=== PATIENT | female | born 1945 | race American Indian/Alaskan Native ===

== ENCOUNTER 2019-10-28 16:14 | Outpatient (CLI) | payer MEDICARE, OTHER | END 2019-10-28 16:15 | disposition home or self-care (01) | LOC: LABHHL 16:14 | PROVIDERS: ATTEND Surgery | DX: C50.912 Malignant neoplasm of unspecified site of left female breast (principal); C50.112 Malignant neoplasm of central portion of left female breast; C50.412 Malignant neoplasm of upper-outer quadrant of left female breast; C50.812 Malignant neoplasm of overlapping sites of left female breast; R59.9 Enlarged lymph nodes, unspecified | CPT/HCPCS: 88305; 88341; 88342 ==

== ENCOUNTER 2019-11-02 14:02 | Outpatient (CLI) | payer MEDICARE ==
--- NOTE | 2019-11-02 16:10 | Vascular Lab Report ---
DUPLEX DOPPLER LOWER EXTREMITY VEINS, BILATERAL INDICATION: R22.43 Localized swelling, mass and lump, lower limb, bilatera/R/. TECHNIQUE: Duplex doppler imaging was performed through the veins of both lower extremities using venous kelsi sherley and other maneuvers. COMPARISON: No relevant prior imaging study available. FINDINGS: Right Common femoral vein: Negative. Right Superficial femoral vein: Negative. Right Popliteal vein: Positive, occlusive. Right Calf veins: Positive, occlusive in the peroneal and posterior tibial veins. Left Common femoral vein: Negative. Left Superficial femoral vein: Positive, occlusive beginning in the mid and extending into the distal segments. Left Popliteal vein: Positive, occlusive. Left Calf veins: Positive extending into the peroneal vein. Additional findings: None.. IMPRESSION: 1. Positive for DVT bilaterally as above. Findings were called to Dr. Isabel by the furnace process plant operator at 1508 hours. Signer Name: Waldemar Hopson MD Signed: 11/02/2019 4:06 PM Workstation Name: [id number]
== END 2019-11-02 14:03 | disposition home or self-care (01) ==
LOC: VAS 14:02
PROVIDERS: ATTEND Surgery
DX: I82.493 Acute embolism and thrombosis of other specified deep vein of lower extremity, bilateral (principal)
CPT/HCPCS: 93970

== ENCOUNTER 2019-11-03 13:24 | Emergency (ER) | payer MEDICARE ==
[2019-11-03 13:33] VITALS: BP 209/91
[2019-11-03] MEDS ORDERED: SODIUM CHLORIDE 0.9% 500 ML 500 ML IV ONE (14:01)
--- NOTE | 2019-11-03 14:01 | Emergency Department Report ---
Chief Complaint: Extremity Injury, Lower Stated Complaint: BLOOD CLOTS/LEG PAIN - HPI History of Present Illness: breast ca follows with dr reinoso has b/l leg pain no cp + sob w exertion [place] [place] labs cta chest ekg main side Vital Signs 11/03/19 13:32 Temperature 98.9 F Pulse Rate 109 H Respiratory 20 Rate Blood Pressure 209/91 [Left] O2 Sat by Pulse 98 Oximetry Print Report Referring Physician: ALYSA ISABEL Patient Name: NAN JENKINS Date of : 1945 Sex: Female Report Date: 2019-11-02 Report Status: Finalized Findings [facility] [address] [place] [address] Vascular Lab Report Signed Patient: NAN JENKINS MR#: [id number] : 1945 Acct:[id number] Age/Sex: 74 / F ADM Date: 11/02/19 Loc: VAS Attending Dr: ALYSA ISABEL MD Ordering Physician: ALYSA ISABEL MD Date of Service: 11/02/19 Procedure(s): VL venous duplex LE BILAT Accession Number(s): [id number] cc: ALYSA ISABEL MD DUPLEX DOPPLER LOWER EXTREMITY VEINS, BILATERAL INDICATION: R22.43 Localized swelling, mass and lump, lower limb, bilatera/R/. TECHNIQUE: Duplex doppler imaging was performed through the veins of both lower extremities using venous compression and other maneuvers. COMPARISON: No relevant prior imaging study available. FINDINGS: Right Common femoral vein: Negative. Right Superficial femoral vein: Negative. Right Popliteal vein: Positive, occlusive. Right Calf veins: Positive, occlusive in the peroneal and posterior tibial veins. Left Common femoral vein: Negative. Left Superficial femoral vein: Positive, occlusive beginning in the mid and extending into the distal segments. Left Popliteal vein: Positive, occlusive. Left Calf veins: Positive extending into the peroneal vein. Additional findings: None.. IMPRESSION: 1. Positive for DVT bilaterally as above. Findings were called to Dr. Isabel by the [employer] at 1508 hours. Signer Name: Waldemar Hopson MD Signed: 11/02/2019 4:06 PM Workstation Name: [id number] Transcribed By: ELENO Dictated By: Waldemar Hopson MD Electronically Authenticated By: Waldemar Hopson MD Signed Date/Time: 11/02/19 160 DD/ 1602 TD/TT: - Exam Vital Signs: Vital Signs 11/03/19 13:32 Temperature 98.9 F Pulse Rate 109 H Respiratory 20 Rate Blood Pressure 209/91 [Left] O2 Sat by Pulse 98 Oximetry MSE screening note: Focused history and physical exam performed. Due to findings the following was ordered: ED Disposition for MSE Condition: Stable
[2019-11-03 15:05] LABS: Hematocrit 27.6 % (30.3-42.9); Hemoglobin 8.8 gm/dl (10.1-14.3); Mean Corpuscular HGB Conc 32 % (30-34); Mean Corpuscular Volume 95 fl (79-97); Platelet Count 380 K/mm3 (140-440); Red Blood Count 2.89 M/mm3 (3.65-5.03); Red Cell Distribution Width 14.9 % (13.2-15.2)
[2019-11-03 15:19] LABS: INR 1.09 (0.87-1.13)
[2019-11-03 15:23] LABS: Alanine Aminotransferase 38 units/L (7-56); Albumin 3.5 g/dL (3.9-5); BUN/Creatinine Ratio 16; Blood Urea Nitrogen 16 mg/dL (7-17); Calcium 10.2 mg/dL (8.4-10.2); Hemolysis Index 0
== END 2019-11-03 17:45 | disposition left against medical advice (07) ==
LOC: ED 13:24
DX: M79.662 Pain in left lower leg (principal); M79.661 Pain in right lower leg; Z53.21 Procedure and treatment not carried out due to patient leaving prior to being seen by health care provider
CPT/HCPCS: 36415; 80053; 82550; 83735; 85027; 85610; 93005; 93010

== ENCOUNTER 2019-11-11 09:39 | Outpatient (CLI) | payer MEDICARE | END 2019-11-11 09:40 | disposition home or self-care (01) | LOC: LABHHL 09:39 | PROVIDERS: ATTEND Surgery | DX: N60.02 Solitary cyst of left breast (principal) | CPT/HCPCS: 88305 ==

== ENCOUNTER 2019-11-24 05:48 | Day surgery (SDC) | payer MEDICARE ==
--- NOTE | 2019-11-23 13:49 | Short Stay Summary ---
Short Stay Documentation Date of service: 11/24/19 - History H&P: obtained from office - Allergies and Medications Current Medications: Allergies No Known Allergies Allergy (Verified 11/23/19 13:46) - Physical exam General appearance: no acute distress Integumentary: no rash Lungs: Normal air movement Neurological: Normal speech - Brief post op/procedure progress note Date of procedure: 11/24/19 (dictation:[id number]) Pre-op diagnosis: left breast cancer Post-op diagnosis: same Procedure: Us guided port placement IVF 700cc EBL min Anesthesia: MAC Findings: normal anatomy. purulent, ulcerated breast cancer on left. Surgeon: VANDANA BACON Estimated blood loss: minimal Pathology: none Condition: stable - Hospital course Hospital course: uneventful - Disposition Condition at discharge: Stable Disposition: DC-01 TO HOME OR SELFCARE Short Stay Discharge Plan Activity: advance as tolerated Diet: regular Wound: remove dressing (on Thursday), per your surgeon's advice Special Instructions: no heavy lifting Additional Instructions: Post Operative Instructions Activity: no heavy lifting for next 1 week. May shower on Thursday. May remove overlying dressing on Thursday. Pat dry the wound or wounds after showering. Keep incision sites clean and dry After surgery, start with a light diet. Consider starting with liquids. If you do well, you can advance to a regular diet as you feel comfortable. Apply an ice pack to the wound or wounds for 10-20 minutes at a time. Do this at least 4-5 times a day. You can do it more if he would like. Take alternating doses of ibuprofen and Tylenol as needed for pain. Take 600 mg of ibuprofen every 6 hours as needed. Take 500 mg of Tylenol every 6 hours as needed. You should alternate these 2 medicines. Make sure you take the ibuprofen with food. It is very important that you use the prescription narcotic pain medicine (hydrocodone) only for very severe pain. Do not take the narcotic medicine before you try using all the medications listed above. Unable to give a new prescription today as we just gave one 2 days ago. We will call you in a couple of days to see how youre doing. If you have any questions or concerns, always feel free to call the clinic ([phone]) at any time. CALL FOR F/U APPT. FOLLOW SURGEON INSTRUCTIONS. Follow up with: PRIMARY MD DONNELL [Primary Care Provider] - 7 Days Forms: Outpatient Surgery [facility]
[~2019-11-24 05:48] MED LIST: LACTATED RINGERS 1,000 ML IV SCH
[2019-11-24] MEDS ORDERED: CELECOXIB 200 MG CAP PO NR (06:00)
[2019-11-24] MEDS ORDERED: GABAPENTIN 300 MG CAP PO NR (06:00)
[2019-11-24] MEDS ORDERED: ceFAZolin/Water 2 GM/20 ML 2 GM/20 ML SYRINGE IV NR (06:00)
[2019-11-24] MEDS ORDERED: ACETAMINOPHEN 500 MG TAB PO SCH (06:00)
[2019-11-24] MEDS ORDERED: LIDOCAINE (1%) 10 MG/1 ML VIAL 20 ML MDV ONE (06:27)
[2019-11-24] MEDS ORDERED: BUPIVACAINE-EPINEPHRINE/PF 0.5%-1:200,000 (30 ML) VIAL INFILTRATI ONE ×2 (06:27→07:23)
[2019-11-24] MEDS ORDERED: SODIUM CHLORIDE P/F VIAL 10 ML 10 ML ONE (06:27)
[2019-11-24] MEDS ORDERED: HEPARIN 10,000 UNITS/10 ML VIAL ONE (06:27)
[2019-11-24] MEDS ORDERED: GELATIN SPONGE SIZE 100 TP ONE (06:28)
[2019-11-24] MEDS ORDERED: SODIUM CHLORIDE 0.9% 250ML 250 ML ONE (06:28)
[2019-11-24 07:14] LABS: Basophils % (Auto) 0.3 % (0.0-1.8); Hematocrit 24.9 % (30.3-42.9); Hemoglobin 7.8 gm/dl (10.1-14.3); Lymphocytes # (Auto) 1.5 K/mm3 (1.2-5.4); Lymphocytes % (Auto) 9.8 % (13.4-35.0); Mean Corpuscular HGB Conc 31 % (30-34); Mean Corpuscular Volume 97 fl (79-97); Monocytes # (Auto) 1.4 K/mm3 (0.0-0.8); Monocytes % (Auto) 9.4 % (0.0-7.3); Platelet Count 424 K/mm3 (140-440); Red Blood Count 2.56 M/mm3 (3.65-5.03); Red Cell Distribution Width 18.2 % (13.2-15.2)
[2019-11-24 07:19] LABS: BUN/Creatinine Ratio 17; Blood Urea Nitrogen 17 mg/dL (7-17); Calcium 11.5 mg/dL (8.4-10.2); Hemolysis Index 1
[2019-11-24] MEDS ORDERED: fentaNYL 100 MCG/2 ML INJ IV PRN (07:20)
--- NOTE | 2019-11-24 07:20 | Anesthesia Consultation ---
Anesthesia Consult and Med Hx Date of service: 11/24/19 - Airway Anesthetic Teeth Evaluation: Dentures (upper) ROM Head & Neck: Adequate (mild rstricted extesion) Mental/Hyoid Distance: Adequate Mallampati Class: Class II Intubation Access Assessment: Possibly Difficult - Pulmonary Exam CTA: Yes - Cardiac Exam Cardiac Exam: RRR - Pre-Operative Health Status ASA Pre-Surgery Classification: ASA3 Proposed Anesthetic Plan: General - Pulmonary Hx Asthma: Yes (remote hx; no inhaler use in >10yrs) Hx Respiratory Symptoms: No - Cardiovascular System Hx Hypertension: Yes (recent diagnosis) Hx Heart Attack/AMI: No Hx Percutaneous Transluminal Coronary Angioplasty (PTCA): No Hx Cardia Arrhythmia: No - Central Nervous System CVA: No - Gastrointestinal Hx Gastroesophageal Reflux Disease: No - Endocrine Hx Renal Disease: No Hx Liver Disease: No Hx Insulin Dependent Diabetes: No Hx Non-Insulin Dependent Diabetes: No Hx Thyroid Disease: No - Hematic Hx Anemia: Yes - Other Systems Hx Cancer: Yes (breast Ca; not yet on chemo) Hx Obesity: No - Additional Comments Anesthesia Medical History Comments: No hx anesthetic complications. Recent diagnosis b/l LE DVT. Previously on xarelto but taken off for bleeding. Now with IVC filter.
--- NOTE | 2019-11-24 07:20 | Anesthesia Day of Surgery ---
Anesthesia Day of Surgery - Day of Surgery Patient Examined: Yes Patient H&P Reviewed: Yes Patient is NPO: Yes
[2019-11-24] MEDS ORDERED: LIDOCAINE (1%) 10 MG/1 ML VIAL 20 ML MDV INFILTRATI ONE (07:23)
[2019-11-24] MEDS ORDERED: HEPARIN 10,000 UNITS/10 ML VIAL IV ONE (07:24)
[2019-11-24] MEDS ORDERED: SODIUM CHLORIDE 0.9% 250 ML IVPB IV ONE (07:25)
[2019-11-24] MEDS ORDERED: LIDOCAINE MPF (2%) 20 MG/1 ML VIAL 5 ML ONE (07:43)
[2019-11-24] MEDS ORDERED: propofoL 200 MG/20 ML VIAL IV ONE ×3 (07:44→08:19)
[2019-11-24] MEDS ORDERED: fentaNYL 100 MCG/2 ML INJ ONE (07:44)
[2019-11-24] MEDS ORDERED: MIDAZOLAM 2 MG/2 ML INJ ONE (08:00)
[2019-11-24] MEDS ORDERED: PHENYLEPHRINE/NS 1,000 MCG/10 ML SYRINGE (OR USE) IV ONE (08:03)
--- NOTE | 2019-11-24 09:19 | Fluoroscopy Report ---
FLUOROSCOPY CENTRAL VENOUS DEVICE PLACEMENT. HISTORY: Left breast cancer, Nalvni-j-Wpse insertion FINDINGS: 20 seconds of fluoroscopy time was provided by radiology during Ewuowg-y-Ebxq placement by surgery. 2 AP images of the chest are presented demonstrating the distal tip of the right IJ Infuse-a -Port in the superior right atrium. The lungs are clear with no evidence for pneumothorax. Normal hea rt and mediastinal structures. IMPRESSION: Successful Sckfcw-y-Gotf placement. No pneumothorax. Signer Name: Rakan Vincent Jr, MD Signed: 11/24/2019 9:14 AM Workstation Name: [id number]
[2019-11-24 10:22] VITALS: BP 136/78
--- NOTE | 2019-11-24 12:16 | Post Anesthesia Evaluation ---
- Post Anesthesia Evaluation Patient Participated: Yes Airway Patent: Yes Stable Respiratory Function: Yes Nausea/Vomiting: No Temp > 96.8F: Yes Pain Manageable: Yes Adequeate Hydration: Yes Anesthesia Complications: No
--- NOTE | 2019-11-27 02:20 | Operative Report ---
PREOPERATIVE DIAGNOSIS: Left breast cancer. POSTOPERATIVE DIAGNOSIS: Left breast cancer. PROCEDURE: Ultrasound-guided port placement. ATTENDING PHYSICIAN: Yoly Carolina MD. ANESTHESIA: Local MAC. ESTIMATED BLOOD LOSS: Minimal. FLUIDS: 700 mL. FINDINGS: Anatomy, the patient had a purulent ulcerative breast cancer on the left side. IMPLANTS: Smart port. COMPLICATIONS: None. DISPOSITION: Stable, transferred to Recovery Room. INDICATIONS: This is a 74-year-old female who was recently diagnosed with left breast cancer. The patient is in need of port placement for chemotherapy. Procedure, risks, benefits were explained to the patient. Risks included but were not limited to infection, bleeding, pain, injury to surrounding structures, possible need for further procedures in the future. The patient understood and consented. OPERATIVE NOTE: The patient was brought to the operating room and placed on the table in supine position. After adequate sedation was established, the patient was prepped and draped in usual sterile fashion. Because of the purulent ulcerated mass in the left breast, the risk for infection was much higher. Dr. Isabel recommended cleaning the area with Betadine, packing it and then covering it with a Tegaderm. We took the extra step of covering it with 1010 drape to try to isolate it away from the surgical site as best. We prepped over that area. After sterile prep and drape was performed, time-out was called. The patient had already received antibiotics. SCDs were in place. Using ultrasound, I examined the right internal jugular vein as well as the subclavian vein, both were reasonable targets. However, the right jugular vein was a much larger target. It compressed easily throughout its course. I did not see any evidence of any clot. We chose this as our entry point. The planned entry point was anesthetized. Under ultrasound guidance, introducer needle was advanced into the vein. We had a successful stick on the first attempt. Blood was aspirated. Guidewire was easily passed. There was no ectopy. Guidewire position was checked with fluoroscopy. Guidewire was secured. We then turned our attention to the planned pocket site. Following the skin lines, we anesthetized the planned site. The skin was sharply incised. Dissection was carried down into the subcutaneous tissue, pocket was created. Additional local was injected. We confirmed that the port easily fit and then we moved to passing the catheter underneath the skin. The planned tract site was then anesthetized with local anesthetic. We passed the tunneler up to the neck. We safely brought it out through the neck incision and then we passed the dilator and sheath over the guidewire. At no point did the guidewire get stuck. It moved easily throughout the entire time as we passed the sheath and dilator. The dilator and wire were removed. Catheter was inserted. Position was adjusted with fluoroscopy and then the distal aspect was cut and attached to the port. We had easy aspiration and flush. We made sure there was no kinking of the catheter or twisting at any point. Sheath was completely removed. A locking solution was administered. The patient was placed from Trendelenburg to reverse Trendelenburg. Additional local was injected. The pocket site was closed with interrupted 3-0 Vicryl sutures in the deep layer. Skin sites were closed with 4-0 Monocryl subcuticular stitches. Skin was cleaned and dried. Dermabond was placed. Because of the increased risk of infection due to the purulent drainage from the left breast cancer, I then covered both sites with 4 x 4 and a Tegaderm hoping that might decrease her chances for infection. Postoperative chest x-ray showed no complications and port was in good position. The patient tolerated the procedure well. There were no complications. All counts were correct at the end of the case. I did speak by phone to the daughter. JOB# [id number] WALT/CARLOS ZAIDI
== END 2019-11-24 10:20 | disposition home or self-care (01) ==
LOC: OR 05:48
PROVIDERS: ATTEND Surgery
DX: C50.912 Malignant neoplasm of unspecified site of left female breast (principal); I10 Essential (primary) hypertension; J45.909 Unspecified asthma, uncomplicated; D64.9 Anemia, unspecified; Z98.890 Other specified postprocedural states; Z80.3 Family history of malignant neoplasm of breast; Z79.899 Other long term (current) drug therapy; Z80.42 Family history of malignant neoplasm of prostate
CPT/HCPCS: 36415; 36561; 77001; 80048; 85025; C1788; J0690; J1644; J2250; J2370; J2704; J3010; J7050; J7120; 76937; A4649

== ENCOUNTER 2019-11-30 17:57 | Inpatient (IN) | payer MEDICARE, OTHER ==
[2019-11-30] MEDS ORDERED: METOCLOPRAMIDE 10 MG/2 ML INJ IV PRN (21:38)
[2019-11-30] MEDS ORDERED: ONDANSETRON 4 MG/2 ML INJ IV PRN (21:38)
[2019-11-30] MEDS ORDERED: ACETAMINOPHEN 325 MG TAB PO PRN (21:38)
[2019-11-30] MEDS ORDERED: oxyCODONE /ACETAMINOPHEN 5-325MG TAB PO PRN (21:38)
[2019-11-30] MEDS: MORPHINE 2 MG/1 ML INJ IV PRN (21:59)
[2019-11-30] MEDS ORDERED: VANCOMYCIN PHARMACY TO DOSE IV SCH (22:00)
[2019-11-30] MEDS ORDERED: FAMOTIDINE 20 MG/2 ML INJ IV SCH (22:00)
[2019-11-30] MEDS: CEFEPIME/NS 2 GM/100 ML 2 GM/100 ML BAG IV SCH (22:55)
[2019-11-30] MEDS: D5W/0.9% NACL 1,000 ML IV SCH (22:56)
[2019-11-30] MEDS: KETOROLAC 30 MG/1 ML INJ IV SCH (23:07)
[2019-11-30 23:38] LABS: Albumin 3.1 g/dL (3.9-5)
[2019-12-01] MEDS ORDERED: VANCOMYCIN 1,250 MG in SODIUM CHLORIDE 0.9% 250ML 250 ML IV ONE (02:00)
[2019-12-01] MEDS: MORPHINE 2 MG/1 ML INJ IV PRN ×2 (02:13→20:48)
[2019-12-01] MEDS ORDERED: hydrALAZINE 10 MG TAB PO PRN (02:38)
[2019-12-01] MEDS: hydrALAZINE 20 MG/1 ML INJ IV PRN ×2 (03:53→20:48)
[2019-12-01] MEDS: CEFEPIME/NS 2 GM/100 ML 2 GM/100 ML BAG IV SCH ×2 (05:26→22:37)
[2019-12-01] MEDS: KETOROLAC 30 MG/1 ML INJ IV SCH ×4 (05:26→23:14)
--- NOTE | 2019-12-01 07:11 | History and Physical Report ---
History of Present Illness Date of examination: 11/30/19 Date of admission: 11/30/19 18:46 Chief complaint: Fungating breast mass for 1 month with drainage of pus. History of present illness: 74 y/o AAF [facility] self diagnosed with a Left breast mass in January 2018 but never went to a doctor for mammogram or exam.[facility]L breast mass was increasing in size.She believed erlinda t Lord will heal her.In Aug 2019 noticed Ulceration on L breast.Even then did not go to a physician.She went on a [place] trip involving [facility] and [facility] for 3 weeks and returns around Oct 20.DevelopedBilateral DVT sec to [employer] travel.Was started on Sarelto which resulted in severe blleding from L breast fungating mass.IVC filter and port were placed and Xarelto was stopped/ Today {ettifprd ca;;s me or a direct admit because of severe ulceration Pain and drainage of puss from L Breast wound./Loss of weight and Severe pain of 10/10 present. Past History Past Medical History: hypertension Past Surgical History: Other (Port amd IVC placement) Social history: Lives alone, full code Family history: hypertension Medications and Allergies Allergies Allergy/AdvReac Type Severity Reaction Status Date / Time No Known Allergies Allergy Verified 11/23/19 13:46 Home Medications Medication Instructions Recorded Confirmed Last Taken Type HYDROcodone/APAP 5-325 [[place] 1 each PO Q6HR PRN 11/23/19 11/30/19 11/30/19 Hist ory 5-325 mg TAB] hydroCHLOROthiazide [HCTZ] 12.5 mg PO QDAY 11/23/19 11/30/19 11/30/19 History lisinopriL [Zestril TAB] 40 mg PO QDAY 11/23/19 11/30/19 11/30/19 History carvediloL [Coreg] 12.5 mg PO BID 11/30/19 11/30/19 Unknown History Active Meds: Active Medications Acetaminophen (Tylenol) 650 mg PO Q4H PRN PRN Reason: Pain MILD(1-3)/Fever >100.5/RAMIREZ Famotidine (Pepcid) 20 mg IV BID ZACK Last Admin: 11/30/19 22:56 Dose: 20 mg Documented by: Hydralazine HCl (Apresoline) 5 mg IV Q6H PRN PRN Reason: Blood Pressure Last Admin: 12/01/19 03:53 Dose: 5 mg Documented by: Hydromorphone HCl (Dilaudid) 1 mg IV Q3H PRN PRN Reason: Pain , Severe (7-10) Dextrose/Sodium Chloride (D5ns) 1,000 mls @ 100 mls/hr IV DIRECT ZACK Last Admin: 11/30/19 22:56 Dose: 100 mls/hr Documented by: Cefepime HCl (Cefepime/Ns 2 Gm/100 Ml) 2 gm in 100 mls @ 200 mls/hr IV Q8HR [facility]; Protocol Last Admin: 12/01/19 05:26 Dose: 200 mls/hr Documented by: Vancomycin HCl (Vancomycin/Ns 1 Gm/250 Ml) 1 gm in 250 mls @ 125 mls/hr IV Q18H [facility] Ketorolac Tromethamine (Toradol) 15 mg IV Q6HR [facility] Stop: 12/06/19 00:00 Last Admin: 12/01/19 05:26 Dose: 15 mg Documented by: Metoclopramide HCl (Reglan) 10 mg IV Q6H PRN PRN Reason: Nausea And Vomiting Morphine Sulfate (Morphine) 2 mg IV Q4H PRN PRN Reason: Pain, Moderate (4-6) Last Admin: 12/01/19 02:13 Dose: 2 mg Documented by: Ondansetron HCl (Zofran) 4 mg IV Q3H PRN PRN Reason: Nausea And Vomiting Oxycodone/Acetaminophen (Percocet 5/325) 1 tab PO Q6H PRN PRN Reason: Pain, Moderate (4-6) Sodium Chloride (Sodium Chloride Flush Syringe 10 Ml) 10 ml IV BID [facility] Last Admin: 11/30/19 22:56 Dose: 10 ml Documented by: Sodium Chloride (Sodium Chloride Flush Syringe 10 Ml) 10 ml IV PRN PRN PRN Reason: LINE FLUSH Review of Systems All systems: negative Constitutional: anorexia, fatigue, poor appetite, no weight loss Ears, nose, mouth and throat: deferred, no ear pain Breasts: discharge, tender, axillary nodes, other (L Breasr severe ulserationwith a deep gaping hole) Cardiovascular: chest pain Respiratory: shortness of breath, dyspnea on exertion, no cough, no cough with sputum, no excessive sputum Gastrointestinal: no abdominal pain, no nausea, no vomiting, no diarrhea Genitourinary Female: no dysuria Menstruation: ammenorrhea Rectal: no pain Musculoskeletal: low back pain, no neck stiffness, no neck pain, no shooting arm pain, no arm numbness/tingling Integumentary: wounds (L Breast), no rash, no pruritis, no redness, no sores Neurological: no seizures, no syncope Psychiatric: change in appetite, depression Endocrine: no cold intolerance, no heat intolerance, no polyphagia, no excessive thirst Hematologic/Lymphatic: no easy bruising, no easy bleeding Allergic/Immunologic: no urticaria, no allergic rhinitis, no wheezing Exam - Constitutional Vitals: Temp Pulse Resp BP Pulse Ox 98.5 F 94 H 18 191/86 98 12/01/19 02:29 12/01/19 02:29 12/01/19 02:29 12/01/19 02:29 12/01/19 02:29 General appearance: Present: severe distress, well-nourished - EENT Eyes: Present: PERRL ENT: hearing intact, clear oral mucosa - Neck Neck: Present: supple, normal ROM - Respiratory Respiratory effort: normal Respiratory: left: other (Severe ulceration and fungating mass L breast), bilateral: CTA - Cardiovascular Heart rate: 78 Rhythm: regular Heart Sounds: Present: S1 & S2. Absent: rub, click - Extremities Extremities: no ischemia, pulses intact, pulses symmetrical, No edema Peripheral Pulses: within normal limits - Abdominal General gastrointestinal: Present: soft, non-tender, non-distended, normal bowel sounds Female genitourinary: Present: normal - Integumentary Integumentary: Present: clear, warm, dry - Musculoskeletal Musculoskeletal: gait normal, strength equal bilaterally - Psychiatric Psychiatric: appropriate mood/affect, intact judgment & insight - Neurologic Neurologic: CNII-XII intact, moves all extremities - Additional findings Additional findings: L breast 10 cm x10 cm x4cm depth fungating mass with drainage of pus. - Allied Health Allied health notes reviewed: nursing, case management Results - Labs CBC & Chem 7: 11/30/19 22:57 Labs: Laboratory Last Values Sodium 137 mmol/L (137-145) 11/30/19 22:57 Potassium 4.3 mmol/L (3.6-5.0) 11/30/19 22:57 Chloride 98.2 mmol/L (98-107) 11/30/19 22:57 Carbon Dioxide 26 mmol/L (22-30) 11/30/19 22:57 Anion Gap 17 mmol/L 11/30/19 22:57 BUN 20 mg/dL (7-17) H 11/30/19 22:57 Creatinine 1.2 mg/dL (0.7-1.2) 11/30/19 22:57 Estimated GFR 53 ml/min 11/30/19 22:57 BUN/Creatinine Ratio 17 % 11/30/19 22:57 Glucose 134 mg/dL (65-100) H 11/30/19 22:57 Calcium 12.0 mg/dL (8.4-10.2) H 11/30/19 22:57 Total Bilirubin 0.20 mg/dL (0.1-1.2) 11/30/19 22:57 AST 28 units/L (5-40) 11/30/19 22:57 ALT 16 units/L (7-56) 11/30/19 22:57 Alkaline Phosphatase 222 units/L (35-129) H 11/30/19 22:57 Total Protein 7.1 g/dL (6.3-8.2) 11/30/19 22:57 Albumin 3.1 g/dL (3.9-5) L 11/30/19 22:57 Albumin/Globulin Ratio 0.8 % 11/30/19 22:57 BMP 11/30/19 22:57 Sodium 137 Potassium 4.3 Chloride 98.2 Carbon Dioxide 26 BUN 20 H Creatinine 1.2 Glucose 134 H Calcium 12.0 H Liver Function 11/30/19 Range/Units 22:57 Total Bilirubin 0.20 (0.1-1.2) mg/dL AST 28 (5-40) units/L ALT 16 (7-56) units/L Alkaline Phosphatase 222 H (35-129) units/L Albumin 3.1 L (3.9-5) g/dL Assessment and Plan Assessment and plan: 1 Fungating L Breast mass with infection Admitted for pain control andIV Cefepime/IV Vancomycin Breast surgery and ID consult requested. May need palliative surgery Wound care consult requested CBC srill pending inspite of repeated ordering 2.HTN Cont antihypertensives 3.DVt both Lower extremities IVC filter SCD's only No Lovenox or xaselto/Eliquis b/c of tendency to bleed frombreast mass. 4.Malnutrition Moderate Dietitian consult 5.Hypercalcemia treated 6.Breast cancer Staging to be done Probably stg [address] for now 7.DVT PROPHYLAXISOn scd's May need Hospice care Advance Directives: Yes (Full code) VTE prophylaxis?: Mechanical Plan of care discussed with patient/family: Yes
--- NOTE | 2019-12-01 07:42 | Event Note ---
Date: 12/01/19 This is a 74-year-old [place] lady recently seen in consultation for left breast fungating mass. She was seen on 11/30/19 with worsening known left breast fungating mass with 50 cc of pus drained and wound cleaned. She was scheduled to start chemotherapy with Dr. King on Thursday but was unable to given hypertension and was scheduled to start on 12/01/19. Recommended admission given pus present and recommendations for IV antibiotics. Plan is for local control of wound and for patient to start chemotherapy MARCIO that will aid in her breast mass. She understands the possibility of having to do surgery sooner but will favor chemotherapy first given concerns of not being able to close primarily. Full H&P to follow. Pertinent info: She reported the presence of a left breast mass she noticed over 1 year ago that has progressively increased in size with skin involvement and odor for over 6 months. Her prior mammogram was in 2007. She has a family history of breast cancer in her mom age 60, breast cancer in her daughter age 52, breast cancer in 2 maternal cousins in their late 30s and 60s, and prostate cancer in her brother age 60. Genetic testing pending. She recently traveled to [place] for 21 days and was also on a cruise ship. Physical exam at consultation on 10/28/19 left breast fungating breast mass around the 1:00 position with cauliflower-like appearance with odor and necrotic tissue, skin ulceration, nipple intact tumor distal to nipple, mass over 7 cm and left breast nearly encompassed with tumor of at least 14 cm and palpable fixed left axillary lymphadenopathy. Physical exam of bilateral lower extremities findings of bilateral edema concerning for DVT; bilateral lower extremity ultrasound performed on 11/02/19 with findings positive for bilateral lower extremities DVT and she was started on Xarelto that was stopped given bleeding from left breast and IVC filter was placed. Left breast skin punch biopsy performed on 10/28/19 and left breast necrotic breast mass debrided. 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 AL 0%, Ki-67 90-100% and Her-2 negative. She has met with Dr. King and recommends neoadjuvant chemotherapy.
--- NOTE | 2019-12-01 07:55 | Hem/Onc Consultation ---
History of Present Illness - Reason for Consult Consult date: 12/01/19 GIST Requesting physician: SOCRATES CUTLER - History of Present Illness 74 y/o AAF witn pmh ofHtn self diagnosed with a Left breast mass in January 2018 but never went to a doctor for mammogram or exam. L breast mass was increasing in size.She believed erlinda t Lord will heal her.In Aug 2019 noticed Ulceration on L breast.Even then did not go to a physician.She went on a [place] trip involving [facility] and [facility] for 3 weeks and returns around Oct 20. DevelopedBilateral DVT sec to Long plane travel.Was started on Xarelto which resulted in severe bleeding from L breast fungating mass. IVC filter and port were placed and Xarelto was stopped Dr Colin ca - direct admit because of severe ulceration Pain and drainage of puss from L Breast wound as per notes She has met with Dr. King and recommended neoadjuvant chemotherapy Past History Past Medical History: hypertension Past Surgical History: Other (Port amd IVC placement) Social history: Lives alone, full code Family history: hypertension Medications and Allergies Allergies Allergy/AdvReac Type Severity Reaction Status Date / Time No Known Allergies Allergy Verified 11/23/19 13:46 Home Medications Medication Instructions Recorded Confirmed Last Taken Type HYDROcodone/APAP 5-325 [[place] 1 each PO Q6HR PRN 11/23/19 11/30/19 11/30/19 History 5-325 mg TAB] hydroCHLOROthiazide [HCTZ] 12.5 mg PO QDAY 11/23/19 11/30/19 11/30/19 History lisinopriL [Zestril TAB] 40 mg PO QDAY 11/23/19 11/30/19 11/30/19 History carvediloL [Coreg] 12.5 mg PO BID 11/30/19 11/30/19 Unknown History Active Meds: Active Medications Acetaminophen (Tylenol) 650 mg PO Q4H PRN PRN Reason: Pain MILD(1-3)/Fever >100.5/RAMIREZ Famotidine (Pepcid) 20 mg IV DAILY ZACK Hydralazine HCl (Apresoline) 5 mg IV Q6H PRN PRN Reason: Blood Pressure Last Admin: 12/01/19 03:53 Dose: 5 mg Documented by: Hydromorphone HCl (Dilaudid) 1 mg IV Q3H PRN PRN Reason: Pain , Severe (7-10) Dextrose/Sodium Chloride (D5ns) 1,000 mls @ 100 mls/hr IV DIRECT [facility] Last Admin: 11/30/19 22:56 Dose: 100 mls/hr Documented by: Vancomycin HCl (Vancomycin/Ns 1 Gm/250 Ml) 1 gm in 250 mls @ 125 mls/hr IV Q24H ZACK Cefepime HCl (Cefepime/Ns 2 Gm/100 Ml) 2 gm in 100 mls @ 200 mls/hr IV Q12HR [facility]; Protocol Pamidronate Disodium 30 mg/ (Sodium Chloride) 503.3333 mls @ 125 mls/hr IV Q24H [facility] Stop: 12/03/19 12:02 Ketorolac Tromethamine (Toradol) 15 mg IV Q6HR [facility] Stop: 12/06/19 00:00 Last Admin: 12/01/19 05:26 Dose: 15 mg Documented by: Metoclopramide HCl (Reglan) 10 mg IV Q6H PRN PRN Reason: Nausea And Vomiting Morphine Sulfate (Morphine) 2 mg IV Q4H PRN PRN Reason: Pain, Moderate (4-6) Last Admin: 12/01/19 02:13 Dose: 2 mg Documented by: Ondansetron HCl (Zofran) 4 mg IV Q3H PRN PRN Reason: Nausea And Vomiting Oxycodone/Acetaminophen (Percocet 5/325) 1 tab PO Q6H PRN PRN Reason: Pain, Moderate (4-6) Sodium Chloride (Sodium Chloride Flush Syringe 10 Ml) 10 ml IV BID [facility] Last Admin: 11/30/19 22:56 Dose: 10 ml Documented by: Sodium Chloride (Sodium Chloride Flush Syringe 10 Ml) 10 ml IV PRN PRN PRN Reason: LINE FLUSH Review of Systems Constitutional: weakness Ears, nose, mouth and throat: no epistaxis Breasts: other (left breast mass 2018) Respiratory: no hemoptysis Gastrointestinal: no vomiting Rectal: no bleeding Neurological: no paralysis, no seizures Endocrine: no cold intolerance, no heat intolerance Hematologic/Lymphatic: no easy bruising Exam - Exam Narrative Exam: Vitals were reviewed. No pallor No icterus No neck lymph nodes Heart S1-S2 present Lungs clear to auscultation anteriorly rt chest port left breast mass Abdomen soft Leg no edema Female genitalia not examined - Constitutional Vitals: Last Vital Signs Temp 98.9 F 12/01/19 06:44 Pulse 98 H 12/01/19 06:44 Resp 20 12/01/19 06:44 BP 182/90 12/01/19 06:44 Pulse Ox 99 12/01/19 06:44 Results - Labs lab Results: Laboratory Results - last 24 hr 11/30/19 22:57 Sodium 137 Potassium 4.3 Chloride 98.2 Carbon Dioxide 26 Anion Gap 17 BUN 20 H Creatinine 1.2 Estimated GFR 53 BUN/Creatinine Ratio 17 Glucose 134 H Calcium 12.0 H Total Bilirubin 0.20 AST 28 ALT 16 Alkaline Phosphatase 222 H Total Protein 7.1 Albumin 3.1 L Albumin/Globulin Ratio 0.8 Assessment and Plan # left breast ca path - 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 The result as follows: Pancytokeratin (A5) positive P63 (A2, A5) positive The immunohistochemical stains confirm the above diagnosis. Breast Cancer Tumor Profiling Antibody(Clone) % Positive Intensity Interpretation ER (6F11) 0% N/A Negative (internal control present) SC ([id number]) 0% N/A Negative (internal control present) Ki-67 (MIB-1) 90-100% N/A Unfavorable HER2 (4B5) N/A 0 Negative as per notes of dr mendez She has met with Dr. King and recommended neoadjuvant chemotherapy # Developed Bilateral leg DVT sec to Long plane travel.Was started on Xarelto which resulted in severe bleeding from L breast fungating mass. IVC filter and port were placed and Xarelto was stopped not sure if CT CAP was done or not - probably dr mendez may know - if unclear - pt will benefit from CT CAP # anemia - may be tumor related - will do def Ix CA 19-9 - Patient Problems (1) Breast cancer Current Visit: Yes Status: Acute Qualifiers: Estrogen receptor status: negative Patient sex: female Laterality: left
[2019-12-01 07:59] LABS: Basophils # (Auto) 0.1 K/mm3 (0.0-0.1); Basophils % (Auto) 0.4 % (0.0-1.8); Eosinophils # (Auto) 0.1 K/mm3 (0.0-0.4); Eosinophils % (Auto) 0.4 % (0.0-4.3); Hematocrit 26.4 % (30.3-42.9); Hemoglobin 8.4 gm/dl (10.1-14.3); Lymphocytes # (Auto) 1.6 K/mm3 (1.2-5.4); Lymphocytes % (Auto) 9.4 % (13.4-35.0); Mean Corpuscular HGB Conc 32 % (30-34); Mean Corpuscular Volume 97 fl (79-97); Monocytes # (Auto) 1.7 K/mm3 (0.0-0.8); Monocytes % (Auto) 9.7 % (0.0-7.3); Platelet Count 389 K/mm3 (140-440); Red Blood Count 2.73 M/mm3 (3.65-5.03); Red Cell Distribution Width 17.7 % (13.2-15.2)
[2019-12-01] MEDS ORDERED: PAMIDRONATE DISODIUM 30 MG in SODIUM CHLORIDE 0.9% 500 ML 500 ML IV SCH (08:00)
[2019-12-01 10:05] LABS: Iron 22 ug/dL (37-170); Total Iron Binding Capacity 130 mcg/dL (250-450)
[2019-12-01] MEDS: FAMOTIDINE 20 MG/2 ML INJ IV SCH (10:10)
--- NOTE | 2019-12-01 11:17 | XRay Report ---
CHEST 2 VIEWS INDICATION: Left breast mass with metastasis. Fungating left breast mass. COMPARISON: None. FINDINGS: Support devices: A right [id number] tip is in the right atrium. Heart: Within normal limits. Pulmonary vasculature: Normal. Lungs/pleura: The lungs are normally expanded and clear. No pulmonary nodule or pulmonary mass. No pl eural effusion. No pneumothorax. Additional findings: A sizable radiopaque left breast mass. IMPRESSION: 1. No acute findings. 2. Large left breast mass. Signer Name: Suhail Ochoa MD Signed: 12/01/2019 11:13 AM Workstation Name: [id number]
--- NOTE | 2019-12-01 11:53 | Progress Note ---
Assessment and Plan Assessment and plan: Patient is a 74 yo AA woman with a history of iron deficiency anemia s/p Iron transfusion and hypertension who presented to [facility] as a direct admission from Dr. Isabel's office where she drained 50 cc of pus and cleaned wound. She discovered the left breast mass around January 2018 but never went to a doctor for mammogram or exam; her last mammogram was with [facility] in 2007. Then around Jul or August 2019 she noticed ulceration of the left breast mass but did not seek medical attention. She even went on a 21 day Cruise. She flew from [place] to [facility] then flew to [facility] to board the Cruise. During the trip, on the 3 days, she developed a viral illness and was sick during the majority of the cruise. The cruise docked in [facility], where she flew back to [place] on October 23. She never was quarantined for CORONAVirus. Patient was seen by Dr. 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 IN 0%, Ki- 67 90-100% and Her-2 negative. At that visit she had bilateral leg swelling and went for BLE Venous Leg doppler which reported bilateral lower extremities DVT on November 02 and she was started on Xarelto which had to be stopped due to bleeding from left breast mass and IVC filter was placed (records most [facility] at [facility]). She was then seen by Dr. Álvaro Rhoades, Heme/Onc for the first time on October 31. The plan was to start Carbo/Taxol chemotherapy followed by debridement left breast mastectomy. She returned to Dr. Rhoades for chemotherapy on 11/28/2019 but Blood pressure was too high. Then she was sent back to Breast Surgeon, Dr. Isabel on 11/30/2019 and from there she was sent here as a direct admission for IV abx to control the infection prior to chemo then debunking mastectomy. (I spoke with Dr. Rhoades's DISPATCH ASSOCIATE Mason Redi) Fungating L Breast mass with infection/wet putrid smelling gangrenous: consult ID, treat IV abx, needs wound Care consult and management Sepsis due to above, poa: get blood culture, treat with ABX, consulted ID Stage 3/4 Left Breast cancer: chemo planned so no hospice considered CORONAvirus risk, out of time frame for risk of transmission, Acute BLE leg DVT unable to tolerate therapeutic A/C due to bleeding: s/p DVT, had CTA chest recently per Dr. Isabel, maybe at [facility] Malignant Hypertension: adjust antihypertensives, iv labetalol prn, control breast pain, Moderate Malnutrition: consult Right Of Way Supervisor Anemia of chronic disorder, iron deficiency and blood loss from fungating mass: monitor cbc closely transfuse prbx if hgb under 7.0 DVT ppx: scd History Interval history: Patient was seen and examined. Follow-up on current diagnosis of Left Breast cancer. Overnight uneventful as no events directly reported to me. Patient denies any chest pain, shortness breath, nausea/vomiting or severe headaches. Imaging, nursing note, chart, labs and old chart reviewed. Discussed with patient. No cough or viral type symptoms Hospitalist Physical - Physical exam Narrative exam: Gen: thin frail nad a/o x 3 HEENT: NCAT, EOMI, PERRL, OP Clear Neck: supple, no adenopathy, no thyromegaly, no JVD CVS/Heart: RRR, normal S1S2, pulses present bilaterally Chest/Lungs: CTA B, Symmetrical chest expansion, good air entry bilaterally GI/Abdomen: soft, NTND, good bowel sounds, no guarding or rebound /Bladder: no suprapubic tenderness, no CVA or paraspinal tenderness Breast: worsen fungating L breast mass I have seen, putrid smelling, huge volleyball size mass with hole to the muscular chest wall in the middle==>left breast fungating breast mass around the 1:00 position with cauliflower-like appearance with odor and necrotic tissue, skin ulceration, nipple intact tumor distal to nipple, mass over 7 cm and left breast nearly encompassed with tumor of at least 14 cm and palpable fixed left axillary lymphadenopathy. Extermity/Skin: no c/c/e, no obvious rash MSK: FROM x 4 Neuro: CN 2-12 grossly intact, no new focal deficits Psych: calm - Constitutional Vitals: Temp Pulse Resp BP Pulse Ox 98.9 F 98 H 20 182/90 99 12/01/19 06:44 12/01/19 06:44 12/01/19 06:44 12/01/19 06:44 12/01/19 06:44 General appearance: Absent: severe distress, well-nourished Results - Labs CBC & Chem 7: 12/01/19 07:28 11/30/19 22:57 Labs: Laboratory Last Values WBC 17.1 K/mm3 (4.5-11.0) H 12/01/19 07:28 RBC 2.73 M/mm3 (3.65-5.03) L 12/01/19 07:28 Hgb 8.4 gm/dl (10.1-14.3) L 12/01/19 07: Hct 26.4 % (30.3-42.9) L 12/01/19 07: MCV 97 fl (79-97) 12/01/19 07: MCH 31 pg (28-32) 12/01/19 07: MCHC 32 % (30-34) 12/01/19 07: RDW 17.7 % (13.2-15.2) H 12/01/19 07:28 Plt Count 389 K/mm3 (140-440) 12/01/19 07:28 Lymph % (Auto) 9.4 % (13.4-35.0) L 12/01/19 07:28 Bee % (Auto) 9.7 % (0.0-7.3) H 12/01/19 07: Eos % (Auto) 0.4 % (0.0-4.3) 12/01/19 07: Baso % (Auto) 0.4 % (0.0-1.8) 12/01/19 07: Lymph # 1.6 K/mm3 (1.2-5.4) 12/01/19 07:28 Bee # 1.7 K/mm3 (0.0-0.8) H 12/01/19 07:28 Eos # 0.1 K/mm3 (0.0-0.4) 12/01/19 07: Baso # 0.1 K/mm3 (0.0-0.1) 12/01/19 07:28 Seg Neutrophils % 80.1 % (40.0-70.0) H 12/01/19 07:28 Seg Neutrophils # 13.7 K/mm3 (1.8-7.7) H 12/01/19 07:28 Sodium 137 mmol/L (137-145) 11/30/19 22:57 Potassium 4.3 mmol/L (3.6-5.0) 11/30/19 22:57 Chloride 98.2 mmol/L (98-107) 11/30/19 22:57 Carbon Dioxide 26 mmol/L (22-30) 11/30/19 22:57 Anion Gap 17 mmol/L 11/30/19 22:57 BUN 20 mg/dL (7-17) H 11/30/19 22:57 Creatinine 1.2 mg/dL (0.7-1.2) 11/30/19 22:57 Estimated GFR 53 ml/min 11/30/19 22:57 BUN/Creatinine Ratio 17 % 11/30/19 22:57 Glucose 134 mg/dL (65-100) H 11/30/19 22:57 Calcium 12.0 mg/dL (8.4-10.2) H 11/30/19 22:57 Iron 22 ug/dL (37-170) L 12/01/19 08:47 TIBC 130 mcg/dL (250-450) L 12/01/19 08:47 Ferritin 2890.0 ng/mL (13.0-400.0) H 12/01/19 08:47 Total Bilirubin 0.20 mg/dL (0.1-1.2) 11/30/19 22:57 AST 28 units/L (5-40) 11/30/19 22:57 ALT 16 units/L (7-56) 11/30/19 22:57 Alkaline Phosphatase 222 units/L (35-129) H 11/30/19 22:57 Total Protein 7.1 g/dL (6.3-8.2) 11/30/19 22:57 Albumin 3.1 g/dL (3.9-5) L 11/30/19 22:57 Albumin/Globulin Ratio 0.8 % 11/30/19 22:57 Vitamin B12 1758 pg/mL (211-911) H 12/01/19 08:47 Folate > 20 ng/mL (7.3-26.0) 12/01/19 08:47 Active Medications - Current Medications Current Medications: Generic Name Dose Route Start Last Admin Trade Name Freq PRN Reason Stop Dose Admin Acetaminophen 650 mg 11/30/19 21:38 Tylenol PO Q4H PRN Pain MILD(1-3)/Fever >100.5/RAMIREZ Famotidine 20 mg 12/01/19 10:00 12/01/19 10:10 Pepcid IV 20 mg DAILY ZACK Administration Hydralazine HCl 5 mg 12/01/19 03:08 12/01/19 03:53 Apresoline IV 5 mg Q6H PRN Administration Blood Pressure Hydromorphone HCl 1 mg 11/30/19 21:38 Dilaudid IV Q3H PRN Pain , Severe (7-10) Dextrose/Sodium Chloride 1,000 mls @ 100 mls/hr 11/30/19 22:00 11/30/19 22:56 D5ns IV 100 mls/hr DIRECT ZACK Administration Vancomycin HCl 1 gm in 250 mls @ 125 mls/hr 12/01/19 22:00 Vancomycin/Ns 1 Gm/250 Ml IV Q24H ZACK Cefepime HCl 2 gm in 100 mls @ 200 mls/hr 12/01/19 22:00 Cefepime/Ns 2 Gm/100 Ml IV Q12HR ZACK Protocol Pamidronate Disodium 30 mg/ 503.3333 mls @ 125 mls/hr 12/01/19 08:00 12/01/19 09:15 Sodium Chloride IV 12/03/19 12:02 125 mls/hr Q24H ZACK Administration Ketorolac Tromethamine 15 mg 12/01/19 00:00 12/01/19 11:26 Toradol IV 12/06/19 00:00 15 mg Q6HR ZACK Administration Metoclopramide HCl 10 mg 11/30/19 21:38 Reglan IV Q6H PRN Nausea And Vomiting Morphine Sulfate 2 mg 11/30/19 21:38 12/01/19 02:13 Morphine IV 2 mg Q4H PRN Administration Pain, Moderate (4-6) Ondansetron HCl 4 mg 11/30/19 21:38 Zofran IV Q3H PRN Nausea And Vomiting Oxycodone/Acetaminophen 1 tab 11/30/19 21:38 Percocet 5/325 PO Q6H PRN Pain, Moderate (4-6) Sodium Chloride 10 ml 11/30/19 22:00 12/01/19 10:09 Sodium Chloride Flush Syringe 10 Ml IV 10 ml BID ZACK Administration Sodium Chloride 10 ml 11/30/19 21:38 Sodium Chloride Flush Syringe 10 Ml IV PRN PRN LINE FLUSH Nutrition/Malnutrition Assess - Dietary Evaluation Nutrition/Malnutrition Findings: Nutrition Notes Start: 12/01/19 11:35 Freq: Status: Active Protocol: Document 12/01/19 11:35 CT (Rec: 12/01/19 11:44 CT [email or web address]) Co-Sign 12/01/19 11:35 LM Nutrition Notes Need for Assessment generated from: director of technology Initial or Follow up Assessment Current Diagnosis Hypertension Other Pertinent Diagnosis fungating breast mass, bilat DVT, breast CA, hypercalcemia Current Diet Regular Labs/Tests BUN 20 Glu 134 Ca 12 Pertinent Medications D5NS 100 ml/hr Height 5 ft 4 in Weight 58.9 kg Usual Body Weight 64.436 kg [place] Body Weight (kg) 54.54 BMI 22.3 Intake Prior to Admission Excellent Weight Status Appropriate Subjective/Other Information RN skin risk screen. Pt stated UBW was 142 lbs at her last weigh in, and that yesterday after the procedure to drain fluid from her CA wound, she weighed 131 lbs. This calculates to be a 7% wt loss in 2 weeks. 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 Pt consumed 50% of breakfast and 75% of dinner the previous night. Discussed with pt the importance of consuming protein in regards to wound healing. Pt stated that she believes she is lactose intolerant but only c/o mild gas and soft stools but she still eats dairy products since it does not cause her any discomfort. Pt stated she would like to try Ensure daily, and Alvin BID to help with wound healing. Noted orbital, temporal, and interosseous wasting. Burn Absent Trauma Absent GI Symptoms None Current % PO Fair (50-74%) Minimum of two criteria Yes Interpretation of Weight Loss (severe) >2% in 1 week Body Fat Depletion Moderate depletion (severe) Muscle Mass Moderate Depletion (severe) #2 Nutrition Diagnosis Increased nutrient needs ( specify in comment below) Comments: protein Etiology wound healing As Evidenced by Signs and Symptoms open wound on breast #1 Nutrition Diagnosis Malnutrition Etiology Breast CA, advanced age As Evidenced by Signs and Symptoms 7% wt loss in 2 weeks, muscle and fat depletion Is patient on ventilator? No Is Patient Ambulatory and/or Out of Bed Yes REE-([place]-St. Jeor-ambulatory/OOB) [ 1409.200 [id number]] Calculation Used for Recommendations Skip Bey Additional Notes Protein needs: 71-88 g/day (1. 2-1.5 g/kg/day) Fluid needs: 1 ml/kcal Nutrition Intervention Change Diet Order: Continue Regular Diet Add Supplement/Snack (indicate name/kcal Add Ensure daily /protein ) Add Alvin BID Provides kCal: 540 Provides Protein (gm) 25 Goal #1 Meet >75% of energy and protein needs Goal #2 wound healing Anticipated Discharge Needs: Regular diet with ONS PRN Follow-Up By: 12/06/19 Additional Comments Follow up for PO/ONS intakes
[2019-12-01] MEDS: D5W/0.9% NACL 1,000 ML IV SCH (15:59)
[2019-12-01] MEDS ORDERED: VANCOMYCIN/NS 1 GM/250 ML 1 GM/250 ML BAG IV SCH (22:00)
[2019-12-02] MEDS: MORPHINE 2 MG/1 ML INJ IV PRN (01:48)
[2019-12-02] MEDS: KETOROLAC 30 MG/1 ML INJ IV SCH ×4 (06:11→23:34)
[2019-12-02] MEDS: hydrALAZINE 20 MG/1 ML INJ IV PRN ×2 (06:11→12:36)
[2019-12-02] MEDS: D5W/0.9% NACL 1,000 ML IV SCH ×2 (06:17→21:23)
[2019-12-02] MEDS: HYDROmorphone 1 MG/1 ML INJ IV PRN ×3 (06:24→21:15)
--- NOTE | 2019-12-02 07:21 | Hem/Onc Progress Note ---
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 The result as follows: Pancytokeratin (A5) positive P63 (A2, A5) positive The immunohistochemical stains confirm the above diagnosis. Breast Cancer Tumor Profiling Antibody(Clone) % Positive Intensity Interpretation ER (6F11) 0% N/A Negative (internal control present) ID ([id number]) 0% N/A Negative (internal control present) Ki-67 (MIB-1) 90-100% N/A Unfavorable HER2 (4B5) N/A 0 Negative as per notes of dr mendez She has met with Dr. King and recommended neoadjuvant chemotherapy # Developed Bilateral leg DVT sec to Long plane travel. Was started on Xarelto which resulted in severe bleeding from L breast fungating mass. IVC filter and port were placed and Xarelto was stopped pt says had CT [facility]- probably dr mendez may know - if unclear - pt will benefit from CT CAP # anemia - may be tumor related -b12 - folate normal - high ferritin - low iron CA 27.29 # High calcium - likely tumor related -aredia trial - Patient Problems (1) Breast cancer Current Visit: Yes Status: Acute Qualifiers: Estrogen receptor status: negative Patient sex: female Laterality: left Subjective Date of service: 12/02/19 Principal diagnosis: left breast ca Interval history: no bleeding no SOB at rest Objective - Exam Narrative Exam: Vitals were reviewed. No pallor No icterus No neck lymph nodes Heart S1-S2 present Lungs clear to auscultation anteriorly rt chest port left breast mass Abdomen soft Leg no edema Female genitalia not examined - Constitutional Vitals: Last Vital Signs Temp 98.4 F 12/02/19 02:29 Pulse 98 H 12/02/19 02:29 Resp 18 12/02/19 02:29 BP 188/96 12/02/19 06:11 Pulse Ox 100 12/02/19 02:29 - Labs Lab Results: Laboratory Results - last 24 hr 12/01/19 12/01/19 12/01/19 07:28 08:47 08:47 WBC 17.1 H RBC 2.73 L Hgb 8.4 L Hct 26.4 L MCV 97 MCH 31 MCHC 32 RDW 17.7 H Plt Count 389 Lymph % (Auto) 9.4 L [place] % (Auto) 9.7 H Eos % (Auto) 0.4 Baso % (Auto) 0.4 Lymph # 1.6 [place] # 1.7 H Eos # 0.1 Baso # 0.1 Seg Neutrophils % 80.1 H Seg Neutrophils # 13.7 H Iron 22 L TIBC 130 L Ferritin 2890.0 H Vitamin B12 Folate 12/01/19 12/01/19 08:47 08:47 WBC RBC Hgb Hct MCV MCH MCHC RDW Plt Count Lymph % (Auto) [place] % (Auto) Eos % (Auto) Baso % (Auto) Lymph # [place] # Eos # Baso # Seg Neutrophils % Seg Neutrophils # Iron TIBC Ferritin Vitamin B12 1758 H Folate > 20 Medications & Allergies - Medications Allergies/Adverse Reactions: Allergies No Known Allergies Allergy (Verified 11/23/19 13:46) Home Medications: Home Medications Medication Instructions Recorded Confirmed Last Taken Type HYDROcodone/APAP 5-325 [[place] 1 each PO Q6HR PRN 11/23/19 11/30/19 11/30/19 History 5-325 mg TAB] hydroCHLOROthiazide [HCTZ] 12.5 mg PO QDAY 11/23/19 11/30/19 11/30/19 History lisinopriL [Zestril TAB] 40 mg PO QDAY 11/23/19 11/30/19 11/30/19 History carvediloL [Coreg] 12.5 mg PO BID 11/30/19 11/30/19 Unknown History Active Medications: Generic Name Dose Route Start Last Admin Trade Name Freq PRN Reason Stop Dose Admin Acetaminophen 650 mg 11/30/19 21:38 Tylenol PO Q4H PRN Pain MILD(1-3)/Fever >100.5/RAMIREZ Famotidine 20 mg 12/01/19 10:00 12/01/19 10:10 Pepcid IV 20 mg DAILY ZACK Administration Hydralazine HCl 5 mg 12/01/19 03:08 12/02/19 06:11 Apresoline IV 5 mg Q6H PRN Administration Blood Pressure Hydromorphone HCl 1 mg 11/30/19 21:38 12/02/19 06:24 Dilaudid IV 1 mg Q3H PRN Administration Pain , Severe (7-10) Dextrose/Sodium Chloride 1,000 mls @ 100 mls/hr 11/30/19 22:00 12/02/19 06:17 D5ns IV 100 mls/hr DIRECT ZACK Administration Vancomycin HCl 1 gm in 250 mls @ 125 mls/hr 12/01/19 22:00 12/01/19 22:50 Vancomycin/Ns 1 Gm/250 Ml IV 125 mls/hr Q24H ZACK Administration Cefepime HCl 2 gm in 100 mls @ 200 mls/hr 12/01/19 22:00 12/01/19 22:37 Cefepime/Ns 2 Gm/100 Ml IV 200 mls/hr Q12HR ZACK Administration Protocol Pamidronate Disodium 30 mg/ 500 mls @ 125 mls/hr 12/02/19 08:00 Sodium Chloride IV 12/03/19 11:59 Q24H ZACK Ketorolac Tromethamine 15 mg 12/01/19 00:00 12/02/19 06:11 Toradol IV 12/06/19 00:00 15 mg Q6HR ZACK Administration Metoclopramide HCl 10 mg 11/30/19 21:38 Reglan IV Q6H PRN Nausea And Vomiting Morphine Sulfate 2 mg 11/30/19 21:38 12/02/19 01:48 Morphine IV 2 mg Q4H PRN Administration Pain, Moderate (4-6) Ondansetron HCl 4 mg 11/30/19 21:38 Zofran IV Q3H PRN Nausea And Vomiting Oxycodone/Acetaminophen 1 tab 11/30/19 21:38 Percocet 5/325 PO Q6H PRN Pain, Moderate (4-6) Sodium Chloride 10 ml 11/30/19 22:00 12/01/19 22:37 Sodium Chloride Flush Syringe 10 Ml IV 10 ml BID ZACK Administration Sodium Chloride 10 ml 11/30/19 21:38 Sodium Chloride Flush Syringe 10 Ml IV PRN PRN LINE FLUSH
--- NOTE | 2019-12-02 08:07 | Progress Note ---
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 She was seen on 11/30/19 with worsening known left breast fungating mass with 50 cc of pus drained and wound cleaned. She was scheduled to start chemotherapy with Dr. King on Thursday but was unable to given uncontrolled hypertension and was scheduled to start on 12/01/19. Pertinent info: She reported the presence of a left breast mass she noticed over 1 year ago that has progressively increased in size with skin involvement and odor for over 6 months. Her prior mammogram was in 2007. She has a family history of breast cancer in her mom age 60, breast cancer in her daughter age 52, breast cancer in 2 maternal cousins in their late 30s and 60s, and prostate cancer in her brother age 60. Genetic testing pending. She recently traveled to [place] for 21 days and was also on a cruise ship. Physical exam at consultation on 10/28/19 left breast fungating breast mass aroun d the 1:00 position with cauliflower-like appearance with odor and necrotic tissue, skin ulceration, nipple intact tumor distal to nipple, mass over 7 cm and left breast nearly encompassed with tumor of at least 14 cm and palpable fixed left axillary lymphadenopathy. Physical exam of bilateral lower extremities findings of bilateral edema concerning for DVT; bilateral lower extremity ultrasound performed on 11/02/19 with findings positive for bilateral lower extremities DVT and she was started on Xarelto that was stopped given bleeding from left breast and IVC filter was placed. Left breast skin punch biopsy performed on 10/28/19 and left breast necrotic breast mass debrided. 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 [place] 0%, Ki-67 90-100% and Her-2 negative. She has met with Dr. King and recommends neoadjuvant chemotherapy. 1. Continue to adjust blood pressure medications; pt with probable chronic uncontrolled hypertension, had not seen a physician in over 5 years. 2. Continue with local wound care; left breast mass dressing changed this morning and wound care has been consulted. 3. Plan is to start pt on neoadjuvant chemotherapy as an outpatient with Dr. King. Recommend neoadjuvant chemotherapy followed by surgery for palliative care. Will consider surgery first if unable to start chemotherapy. Continue with antibiotics. Subjective Date of service: 12/02/19 Principal diagnosis: Advanced Stage Left breast cancer, Stage III/IV [id number] triple negative Interval history: This is a 74-year-old Bulgarian lady recently seen in consultation for left breast fungating mass; pathology findings of squamous cell breast carcinoma [id number] Stage III/. She was seen on 11/30/19 in my office with worsening known left breast fungating mass with 50 cc of pus drained and wound cleaned. Recommendations were for admission given persistent uncontrolled hypertension and for local wound care with IV antibiotics with anticipation that neoadjuvant chemotherapy could be started (delayed due to uncontrolled hypertension). Objective - Constitutional Vitals: Vital Signs - 12hr 12/01/19 12/01/19 12/02/19 20:31 20:48 02:29 Temperature 98.4 F 98.4 F Pulse Rate 106 H 106 H 98 H Respiratory 18 18 Rate Blood Pressure 188/95 188/95 178/72 O2 Sat by Pulse 100 100 Oximetry 12/02/19 12/02/19 12/02/19 06:11 06:14 07:46 Temperature 98.0 F Pulse Rate 107 H Respiratory 20 Rate Blood Pressure 188/96 188/96 185/86 O2 Sat by Pulse 98 Oximetry General appearance: Present: no acute distress - EENT Eyes: PERRL, EOM intact ENT: hearing intact, clear oral mucosa Ears: bilateral: normal - Neck Neck: supple, normal ROM - Respiratory Respiratory effort: normal - Breasts Breasts: other (stable left breast fungating cancer mass encompassing the majority of her breast; wound cleane with leticia pus present; stable liqeufactive necrotic tissue; stable odor) - Cardiovascular Rhythm: regular Extremities: no ischemia, pulses intact, pulses symmetrical, normal temperature, normal color Extremity abnormal: edema (known bilateral LE DVTS-no vascular compromise) - Gastrointestinal General gastrointestinal: Present: soft, non-tender, non-distended Rectal Exam: deferred - Genitourinary Female genitourinary: deferred - Integumentary Integumentary: clear, warm, dry - Musculoskeletal Musculoskeletal: strength equal bilaterally - Neurologic Neurologic: CNII-XII intact, moves all extremities - Psychiatric Psychiatric: appropriate mood/affect, intact judgment & insight, memory intact, cooperative - Labs CBC & Chem 7: 12/01/19 07:28 11/30/19 22:57 Labs: Abnormal lab results 12/01/19 12/01/19 12/01/19 Range/Units 08:47 08:47 08:47 Iron 22 L (37-170) ug/dL TIBC 130 L (250-450) mcg/dL Ferritin 2890.0 H (13.0-400.0) ng/mL Vitamin B12 1758 H (211-911) pg/mL Medications & Allergies - Medications Allergies/Adverse Reactions: Allergies No Known Allergies Allergy (Verified 11/23/19 13:46) Home Medications: Home Medications Medication Instructions Recorded Confirmed Last Taken Type HYDROcodone/APAP 5-325 [[place] 1 each PO Q6HR PRN 11/23/19 11/30/19 11/30/19 History 5-325 mg TAB] hydroCHLOROthiazide [HCTZ] 12.5 mg PO QDAY 11/23/19 11/30/19 11/30/19 History lisinopriL [Zestril TAB] 40 mg PO QDAY 11/23/19 11/30/19 11/30/19 History carvediloL [Coreg] 12.5 mg PO BID 11/30/19 11/30/19 Unknown History Active Medications: Generic Name Dose Route Start Last Admin Trade Name Freq PRN Reason Stop Dose Admin Acetaminophen 650 mg 11/30/19 21:38 Tylenol PO Q4H PRN Pain MILD(1-3)/Fever >100.5/RAMIREZ Famotidine 20 mg 12/01/19 10:00 12/01/19 10:10 Pepcid IV 20 mg DAILY ZACK Administration Hydralazine HCl 5 mg 12/01/19 03:08 12/02/19 06:11 Apresoline IV 5 mg Q6H PRN Administration Blood Pressure Hydromorphone HCl 1 mg 11/30/19 21:38 12/02/19 06:24 Dilaudid IV 1 mg Q3H PRN Administration Pain , Severe (7-10) Dextrose/Sodium Chloride 1,000 mls @ 100 mls/hr 11/30/19 22:00 12/02/19 06:17 D5ns IV 100 mls/hr DIRECT ZACK Administration Vancomycin HCl 1 gm in 250 mls @ 125 mls/hr 12/01/19 22:00 12/01/19 22:50 Vancomycin/Ns 1 Gm/250 Ml IV 125 mls/hr Q24H ZACK Administration Cefepime HCl 2 gm in 100 mls @ 200 mls/hr 12/01/19 22:00 12/01/19 22:37 Cefepime/Ns 2 Gm/100 Ml IV 200 mls/hr Q12HR ZACK Administration Protocol Pamidronate Disodium 30 mg/ 500 mls @ 125 mls/hr 12/02/19 08:00 Sodium Chloride IV 12/03/19 11:59 Q24H ZACK Ketorolac Tromethamine 15 mg 12/01/19 00:00 12/02/19 06:11 Toradol IV 12/06/19 00:00 15 mg Q6HR ZACK Administration Metoclopramide HCl 10 mg 11/30/19 21:38 Reglan IV Q6H PRN Nausea And Vomiting Morphine Sulfate 2 mg 11/30/19 21:38 12/02/19 01:48 Morphine IV 2 mg Q4H PRN Administration Pain, Moderate (4-6) Ondansetron HCl 4 mg 11/30/19 21:38 Zofran IV Q3H PRN Nausea And Vomiting Oxycodone/Acetaminophen 1 tab 11/30/19 21:38 Percocet 5/325 PO Q6H PRN Pain, Moderate (4-6) Sodium Chloride 10 ml 11/30/19 22:00 12/01/19 22:37 Sodium Chloride Flush Syringe 10 Ml IV 10 ml BID ZACK Administration Sodium Chloride 10 ml 11/30/19 21:38 Sodium Chloride Flush Syringe 10 Ml IV PRN PRN LINE FLUSH
[2019-12-02] MEDS: CEFEPIME/NS 2 GM/100 ML 2 GM/100 ML BAG IV SCH ×2 (09:00→23:32)
[2019-12-02] MEDS: PAMIDRONATE DISODIUM 30 MG in SODIUM CHLORIDE 0.9% 500 ML 500 ML IV SCH (09:00)
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
[2019-12-02] MEDS: FAMOTIDINE 20 MG/2 ML INJ IV SCH (09:53)
[2019-12-02] MEDS ORDERED: HYDROcodone/ACETAMINOPHEN 5-325 MG TAB PO PRN (14:55)
--- NOTE | 2019-12-02 15:02 | Progress Note ---
Assessment and Plan Assessment and plan: Patient is a 74 yo AA woman with a history of iron deficiency anemia s/p Iron transfusion and hypertension who presented to [facility] as a direct admission from Dr. Isabel's office where she drained 50 cc of pus and cleaned wound. She discovered the left breast mass around January 2018 but never went to a doctor for mammogram or exam; her last mammogram was with [facility] in 2007. Then around Jul or August 2019 she noticed ulceration of the left breast mass but did not seek medical attention. She even went on a 21 day Cruise. She flew from [place] to [facility] then flew to [facility] to board the Cruise. During the trip, on the 3 days, she developed a viral illness and was sick during the majority of the cruise with breast pains. The cruise docked in [facility], where she flew back to [place] on October 23. She never was quarantined for CORONAVirus. Patient was seen by Dr. 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 [place] 0%, Ki-67 90-100% and Her-2 negative. At that visit she had bilateral leg swelling and went for BLE Venous Leg doppler which reported bilateral lower extremities DVT on November 02 and she was started on Xarelto which had to be stopped due to bleeding from left breast mass and IVC filter was placed (records most likely at [facility]). She was then seen by Dr. Álvaro Rhoades, Heme/Onc for the first time on October 31. The plan was to start Carbo/Taxol chemotherapy followed by debridement left breast mastectomy. She returned to Dr. Rhoades for chemotherapy on 11/28/2019 but Blood pressure was too high. Then she was sent back to Breast Surgeon, Dr. Isabel on 11/30/2019 and from there she was sent here as a direct admission for IV abx to control the infection prior to chemo then debunking mastectomy. (I spoke with Dr. 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 Isabel, maybe at [facility] Moderate Malnutrition: consult Nail Technician Anemia of chronic disorder, iron deficiency and blood loss from fungating mass: monitor cbc closely transfuse prbx if hgb under 7.0 DVT ppx: scd Disposition: continue inpatient care, iv abx, await wound culture from Dr. Isabel's office which is growing GND, ID is following. Main issue preventing chemotherapy is control of bp, Coreg/Lisinopril/HCTZ History Interval history: Patient was seen and examined. Follow-up on current diagnosis of Left Breast cancer. Overnight uneventful as no events directly reported to me. Patient denies any chest pain, shortness breath, nausea/vomiting or severe headaches. Imaging, nursing note, chart, labs and old chart reviewed. Discussed with patient. No cough or viral type symptoms Hospitalist Physical - Physical exam Narrative exam: Gen: thin frail nad a/o x 3 HEENT: NCAT, EOMI, PERRL, OP Clear Neck: supple, no adenopathy, no thyromegaly, no JVD CVS/Heart: RRR, normal S1S2, pulses present bilaterally Chest/Lungs: CTA B, Symmetrical chest expansion, good air entry bilaterally GI/Abdomen: soft, NTND, good bowel sounds, no guarding or rebound /Bladder: no suprapubic tenderness, no CVA or paraspinal tenderness Breast: worsen fungating L breast mass I have seen, putrid smelling, huge volleyball size mass with hole to the muscular chest wall in the middle==>left breast fungating breast mass around the 1:00 position with cauliflower-like appearance with odor and necrotic tissue, skin ulceration, nipple intact tumor distal to nipple, mass over 7 cm and left breast nearly encompassed with tumor of at least 14 cm and palpable fixed left axillary lymphadenopathy. Extermity/Skin: no c/c/e, no obvious rash MSK: FROM x 4 Neuro: CN 2-12 grossly intact, no new focal deficits Psych: calm - Constitutional Vitals: Temp Pulse Resp BP Pulse Ox 98.4 F 115 H 20 175/84 99 12/02/19 13:20 12/02/19 13:20 12/02/19 13:20 12/02/19 13:20 12/02/19 13:20 General appearance: Absent: severe distress, well-nourished Results - Labs CBC & Chem 7: 12/01/19 07:28 11/30/19 22:57 Labs: Laboratory Last Values WBC 17.1 K/mm3 (4.5-11.0) H 12/01/19 07:28 RBC 2.73 M/mm3 (3.65-5.03) L 12/01/19 07:28 Hgb 8.4 gm/dl (10.1-14.3) L 12/01/19 07:28 Hct 26.4 % (30.3-42.9) L 12/01/19 07:28 MCV 97 fl (79-97) 12/01/19 07: MCH 31 pg (28-32) 12/01/19 07: MCHC 32 % (30-34) 12/01/19 07:28 RDW 17.7 % (13.2-15.2) H 12/01/19 07:28 Plt Count 389 K/mm3 (140-440) 12/01/19 07:28 Lymph % (Auto) 9.4 % (13.4-35.0) L 12/01/19 07:28 [place] % (Auto) 9.7 % (0.0-7.3) H 12/01/19 07:28 Eos % (Auto) 0.4 % (0.0-4.3) 12/01/19 07:28 Baso % (Auto) 0.4 % (0.0-1.8) 12/01/19 07: Lymph # 1.6 K/mm3 (1.2-5.4) 12/01/19 07:28 [place] # 1.7 K/mm3 (0.0-0.8) H 12/01/19 07:28 Eos # 0.1 K/mm3 (0.0-0.4) 12/01/19 07:28 Baso # 0.1 K/mm3 (0.0-0.1) 12/01/19 07:28 Seg Neutrophils % 80.1 % (40.0-70.0) H 12/01/19 07:28 Seg Neutrophils # 13.7 K/mm3 (1.8-7.7) H 12/01/19 07:28 Sodium 137 mmol/L (137-145) 11/30/19 22:57 Potassium 4.3 mmol/L (3.6-5.0) 11/30/19 22:57 Chloride 98.2 mmol/L (98-107) 11/30/19 22:57 Carbon Dioxide 26 mmol/L (22-30) 11/30/19 22:57 Anion Gap 17 mmol/L 11/30/19 22:57 BUN 20 mg/dL (7-17) H 11/30/19 22:57 Creatinine 1.2 mg/dL (0.7-1.2) 11/30/19 22:57 Estimated GFR 53 ml/min 11/30/19 22:57 BUN/Creatinine Ratio 17 % 11/30/19 22:57 Glucose 134 mg/dL (65-100) H 11/30/19 22:57 Calcium 12.0 mg/dL (8.4-10.2) H 11/30/19 22:57 Iron 22 ug/dL (37-170) L 12/01/19 08:47 TIBC 130 mcg/dL (250-450) L 12/01/19 08:47 Ferritin 2890.0 ng/mL (13.0-400.0) H 12/01/19 08:47 Total Bilirubin 0.20 mg/dL (0.1-1.2) 11/30/19 22:57 AST 28 units/L (5-40) 11/30/19 22:57 ALT 16 units/L (7-56) 11/30/19 22:57 Alkaline Phosphatase 222 units/L (35-129) H 11/30/19 22:57 Total Protein 7.1 g/dL (6.3-8.2) 11/30/19 22:57 Albumin 3.1 g/dL (3.9-5) L 11/30/19 22:57 Albumin/Globulin Ratio 0.8 % 11/30/19 22:57 Vitamin B12 1758 pg/mL (211-911) H 12/01/19 08:47 Folate > 20 ng/mL (7.3-26.0) 12/01/19 08:47 Active Medications - Current Medications Current Medications: Generic Name Dose Route Start Last Admin Trade Name Freq PRN Reason Stop Dose Admin Acetaminophen 650 mg 11/30/19 21:38 Tylenol PO Q4H PRN Pain MILD(1-3)/Fever >100.5/RAMIREZ Acetaminophen/Hydrocodone Bitart 1 each 12/02/19 14:55 [place] 5/325 PO Q6HR PRN PAIN Carvedilol 12.5 mg 12/02/19 15:00 Coreg PO BID ZACK Famotidine 20 mg 12/01/19 10:00 12/02/19 09:53 Pepcid IV 20 mg DAILY ZACK Administration Hydralazine HCl 5 mg 12/01/19 03:08 12/02/19 12:36 Apresoline IV 5 mg Q6H PRN Administration Blood Pressure Hydrochlorothiazide 12.5 mg 12/03/19 10:00 Hctz PO QDAY ZACK Hydromorphone HCl 1 mg 11/30/19 21:38 12/02/19 06:24 Dilaudid IV 1 mg Q3H PRN Administration Pain , Severe (7-10) Dextrose/Sodium Chloride 1,000 mls @ 100 mls/hr 11/30/19 22:00 12/02/19 06:17 D5ns IV 100 mls/hr DIRECT ZACK Administration Cefepime HCl 2 gm in 100 mls @ 200 mls/hr 12/01/19 22:00 12/02/19 09:00 Cefepime/Ns 2 Gm/100 Ml IV 200 mls/hr Q12HR ZACK Administration Protocol Pamidronate Disodium 30 mg/ 500 mls @ 125 mls/hr 12/02/19 08:00 12/02/19 09:00 Sodium Chloride IV 12/03/19 11:59 125 mls/hr Q24H ZACK Administration Ketorolac Tromethamine 15 mg 12/01/19 00:00 12/02/19 12:29 Toradol IV 12/06/19 00:00 15 mg Q6HR ZACK Administration Lisinopril 40 mg 12/02/19 15:00 Zestril PO QDAY ZACK Metoclopramide HCl 10 mg 11/30/19 21:38 Reglan IV Q6H PRN Nausea And Vomiting Morphine Sulfate 2 mg 11/30/19 21:38 12/02/19 01:48 Morphine IV 2 mg Q4H PRN Administration Pain, Moderate (4-6) Ondansetron HCl 4 mg 11/30/19 21:38 Zofran IV Q3H PRN Nausea And Vomiting Oxycodone/Acetaminophen 1 tab 11/30/19 21:38 Percocet 5/325 PO Q6H PRN Pain, Moderate (4-6) Sodium Chloride 10 ml 11/30/19 22:00 12/02/19 09:53 Sodium Chloride Flush Syringe 10 Ml IV 10 ml BID ZACK Administration Sodium Chloride 10 ml 11/30/19 21:38 Sodium Chloride Flush Syringe 10 Ml IV PRN PRN LINE FLUSH Nutrition/Malnutrition Assess - Dietary Evaluation Nutrition/Malnutrition Findings: Nutrition Notes Start: 12/01/19 11:35 Freq: Status: Active Protocol: Document 12/01/19 11:35 CT (Rec: 12/01/19 11:44 CT [email or web address]) Co-Sign 12/01/19 11:35 LM Nutrition Notes Need for Assessment generated from: firmware software verification engineer Initial or Follow up Assessment Current Diagnosis Hypertension Other Pertinent Diagnosis fungating breast mass, bilat DVT, breast CA, hypercalcemia Current Diet Regular Labs/Tests BUN 20 Glu 134 Ca 12 Pertinent Medications D5NS 100 ml/hr Height 5 ft 4 in Weight 58.9 kg Usual Body Weight 64.436 kg [place] Body Weight (kg) 54.54 BMI 22.3 Intake Prior to Admission Excellent Weight change and time frame 7% wt loss in 2 weeks (fluid removal) Weight Status Appropriate Subjective/Other Information RN skin risk screen. Pt stated UBW was 142 lbs at her last weigh in, and that yesterday after the procedure to drain fluid from her CA wound, she weighed 131 lbs. This calculates to be a 7% wt loss in 2 weeks. 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 Pt consumed 50% of breakfast and 75% of dinner the previous night. Discussed with pt the importance of consuming protein in regards to wound healing. Pt stated that she believes she is lactose intolerant but only c/o mild gas and soft stools but she still eats dairy products since it does not cause her any discomfort. Pt stated she would like to try Ensure daily, and Alvin BID to help with wound healing. Noted orbital, temporal, and interosseous wasting. Burn Absent Trauma Absent GI Symptoms None Current % PO Fair (50-74%) Minimum of two criteria Yes Body Fat Depletion Moderate depletion (severe) Muscle Mass Moderate Depletion (severe) #2 Nutrition Diagnosis Increased nutrient needs ( specify in comment below) Comments: protein Etiology wound healing As Evidenced by Signs and Symptoms open wound on breast #1 Nutrition Diagnosis Malnutrition Etiology Breast CA, advanced age As Evidenced by Signs and Symptoms muscle and fat depletion Is patient on ventilator? No Is Patient Ambulatory and/or Out of Bed Yes REE-([facility]-ambulatory/OOB) [ 1409.200 NUTR.[id number]] Calculation Used for Recommendations [facility] Additional Notes Protein needs: 71-88 g/day (1. 2-1.5 g/kg/day) Fluid needs: 1 ml/kcal Nutrition Intervention Change Diet Order: Continue Regular Diet Add Supplement/Snack (indicate name/kcal Add Ensure daily /protein ) Add Alvin BID Provides kCal: 540 Provides Protein (gm) 25 Goal #1 Meet >75% of energy and protein needs Goal #2 wound healing Anticipated Discharge Needs: Regular diet with ONS PRN Follow-Up By: 12/06/19 Additional Comments Follow up for PO/ONS intakes
[2019-12-02] MEDS: carvediloL 12.5 MG TAB PO SCH ×2 (17:23→23:33)
[2019-12-02] MEDS: LISINOPRIL 40 MG TAB PO SCH (17:24)
[2019-12-03] MEDS: HYDROmorphone 1 MG/1 ML INJ IV PRN ×3 (01:03→17:54)
[2019-12-03] MEDS: PAMIDRONATE DISODIUM 30 MG in SODIUM CHLORIDE 0.9% 500 ML 500 ML IV SCH (08:22)
[2019-12-03] MEDS: hydroCHLOROthiazide 12.5 MG CAP PO SCH (10:31)
[2019-12-03] MEDS: LISINOPRIL 40 MG TAB PO SCH (10:31)
[2019-12-03] MEDS: FAMOTIDINE 20 MG/2 ML INJ IV SCH (10:32)
[2019-12-03] MEDS: carvediloL 12.5 MG TAB PO SCH ×2 (11:15→22:31)
[2019-12-03] MEDS: KETOROLAC 30 MG/1 ML INJ IV SCH ×2 (11:24→17:54)
[2019-12-03] MEDS: CEFEPIME/NS 2 GM/100 ML 2 GM/100 ML BAG IV SCH ×2 (11:29→22:32)
--- NOTE | 2019-12-03 11:44 | Progress Note ---
Assessment and Plan Assessment and plan: Patient is a 74 yo AA woman with a history of iron deficiency anemia s/p Iron transfusion and hypertension who [facility] direct [facility] from Dr. Isabel's office where she drained 50 cc of pus and cleaned wound. She discovered the left breast mass around January 2018 but never went to a doctor for mammogram or exam; her last mammogram was with [facility] in 2007. Then around Jul or August 2019 she noticed ulceration of the left breast mass but did not seek medical attention. She even went on a 21 day Cruise. She flew from [place] to [facility] then flew to [facility] to board the Cruise. During the trip, on the 3 days, she developed a viral illness and was sick during the majority of the cruise with breast pains. The cruise docked in [facility], where she flew back to [place] on October 23. She never was quarantined for CORONAVirus. Patient was seen by Dr. 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 [place] 0%, Ki-67 90-100% and Her-2 negative. At that visit she had bilateral leg swelling and went for BLE Venous Leg doppler which reported bilateral lower extremities DVT on November 02 and she was started on Xarelto which had to be stopped due to bleeding from left breast mass and IVC filter was placed (records most likely at [facility]). She was then seen by Dr. Álvaro Rhoades, Heme/Onc for the first time on October 31. The plan was to start Carbo/Taxol chemotherapy followed by debridement left breast mastectomy. She returned to Dr. Rhoades for chemotherapy on 11/28/2019 but Blood pressure was too high. Then she was sent back to Breast Surgeon, Dr. Isabel on 11/30/2019 and from there she was sent here as a direct admission for IV abx to control the infection prior to chemo then debunking mastectomy. (I spoke with Dr. 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 Isabel, maybe at [facility] Moderate Malnutrition: consult Senior Clinical Study Manager Anemia of chronic disorder, iron deficiency and blood loss from fungating mass: monitor cbc closely transfuse prbx if hgb under 7.0 DVT ppx: scd Disposition: continue inpatient care, iv abx, await wound culture from Dr. Isabel's office which is growing GND, ID is following. Main issue preventing chemotherapy is control of bp, Coreg/Lisinopril/HCTZ 12/03/19: Still with severe left breast pains, using iv dilaudid with some relief. D/W Dr. Isabel, patient needs Chemotherapy as soon as possible. Patient is scheduled for Chemotherapy on Thursday with Dr. Álvaro Rhoades as long as BP is controlled. Her BP is improved but still high despite the 3 antihypertensives she is on. I will add Norvasc. Pain is driving bp to be higher. Consider long acting Opioids but I do not want her lethargic or drowsy for chemotherapy on Thursday, so I will use prn Opioid. Anticipate discharge tomorrow (Thursday) History Interval history: Patient was seen and examined. Follow-up on current diagnosis of Left Breast cancer. Overnight uneventful as no events directly reported to me. Patient denies any chest pain, shortness breath, nausea/vomiting or severe headaches. Imaging, nursing note, chart, labs and old chart reviewed. Discussed with patient. No cough or viral type symptoms. Severe left breast pains still Hospitalist Physical - Physical exam Narrative exam: Gen: thin frail nad a/o x 3 HEENT: NCAT, EOMI, PERRL, OP Clear Neck: supple, no adenopathy, no thyromegaly, no JVD CVS/Heart: RRR, normal S1S2, pulses present bilaterally Chest/Lungs: CTA B, Symmetrical chest expansion, good air entry bilaterally GI/Abdomen: soft, NTND, good bowel sounds, no guarding or rebound /Bladder: no suprapubic tenderness, no CVA or paraspinal tenderness Breast: worsen fungating L breast mass I have seen, putrid smelling, huge volleyball size mass with hole to the muscular chest wall in the middle==>left breast fungating breast mass around the 1:00 position with cauliflower-like vikash earance with odor and necrotic tissue, skin ulceration, nipple intact tumor distal to nipple, mass over 7 cm and left breast nearly encompassed with tumor of at least 14 cm and palpable fixed left axillary lymphadenopathy. Extermity/Skin: no c/c/e, no obvious rash MSK: FROM x 4 Neuro: CN 2-12 grossly intact, no new focal deficits Psych: calm - Constitutional Vitals: Temp Pulse Resp BP Pulse Ox 97.8 F 90 18 161/81 99 12/03/19 07:59 12/03/19 11:15 12/03/19 07:59 12/03/19 11:15 12/03/19 07:59 General appearance: Absent: severe distress, well-nourished Results - Labs CBC & Chem 7: 12/01/19 07:28 11/30/19 22:57 Labs: Laboratory Last Values WBC 17.1 K/mm3 (4.5-11.0) H 12/01/19 07:28 RBC 2.73 M/mm3 (3.65-5.03) L 12/01/19 07:28 Hgb 8.4 gm/dl (10.1-14.3) L 12/01/19 07:28 Hct 26.4 % (30.3-42.9) L 12/01/19 07:28 MCV 97 fl (79-97) 12/01/19 07:28 MCH 31 pg (28-32) 12/01/19 07:28 MCHC 32 % (30-34) 12/01/19 07:28 RDW 17.7 % (13.2-15.2) H 12/01/19 07:28 Plt Count 389 K/mm3 (140-440) 12/01/19 07:28 Lymph % (Auto) 9.4 % (13.4-35.0) L 12/01/19 07:28 [place] % (Auto) 9.7 % (0.0-7.3) H 12/01/19 07:28 Eos % (Auto) 0.4 % (0.0-4.3) 12/01/19 07:28 Baso % (Auto) 0.4 % (0.0-1.8) 12/01/19 07:28 Lymph # 1.6 K/mm3 (1.2-5.4) 12/01/19 07:28 [place] # 1.7 K/mm3 (0.0-0.8) H 12/01/19 07:28 Eos # 0.1 K/mm3 (0.0-0.4) 12/01/19 07:28 Baso # 0.1 K/mm3 (0.0-0.1) 12/01/19 07: Seg Neutrophils % 80.1 % (40.0-70.0) H 12/01/19 07:28 Seg Neutrophils # 13.7 K/mm3 (1.8-7.7) H 12/01/19 07:28 Sodium 137 mmol/L (137-145) 11/30/19 22:57 Potassium 4.3 mmol/L (3.6-5.0) 11/30/19 22:57 Chloride 98.2 mmol/L (98-107) 11/30/19 22:57 Carbon Dioxide 26 mmol/L (22-30) 11/30/19 22:57 Anion Gap 17 mmol/L 11/30/19 22:57 BUN 20 mg/dL (7-17) H 11/30/19 22:57 Creatinine 1.2 mg/dL (0.7-1.2) 11/30/19 22:57 Estimated GFR 53 ml/min 11/30/19 22:57 BUN/Creatinine Ratio 17 % 11/30/19 22:57 Glucose 134 mg/dL (65-100) H 11/30/19 22:57 Calcium 12.0 mg/dL (8.4-10.2) H 11/30/19 22:57 Iron 22 ug/dL (37-170) L 12/01/19 08:47 TIBC 130 mcg/dL (250-450) L 12/01/19 08:47 Ferritin 2890.0 ng/mL (13.0-400.0) H 12/01/19 08:47 Total Bilirubin 0.20 mg/dL (0.1-1.2) 11/30/19 22:57 AST 28 units/L (5-40) 11/30/19 22:57 ALT 16 units/L (7-56) 11/30/19 22:57 Alkaline Phosphatase 222 units/L (35-129) H 11/30/19 22:57 Total Protein 7.1 g/dL (6.3-8.2) 11/30/19 22:57 Albumin 3.1 g/dL (3.9-5) L 11/30/19 22:57 Albumin/Globulin Ratio 0.8 % 11/30/19 22:57 CA 19-9 Antigen <3 U/mL (<34) 12/01/19 08:47 Vitamin B12 1758 pg/mL (211-911) H 12/01/19 08:47 Folate > 20 ng/mL (7.3-26.0) 12/01/19 08:47 Active Medications - Current Medications Current Medications: Generic Name Dose Route Start Last Admin Trade Name Freq PRN Reason Stop Dose Admin Acetaminophen 650 mg 11/30/19 21:38 Tylenol PO Q4H PRN Pain MILD(1-3)/Fever >100.5/RAMIREZ Acetaminophen/Hydrocodone Bitart 1 each 12/02/19 14:55 [place] 5/325 PO Q6HR PRN PAIN Amlodipine Besylate 10 mg 12/03/19 12:00 Amlodipine PO QDAY ZACK Carvedilol 12.5 mg 12/02/19 15:00 12/03/19 11:15 Coreg PO 12.5 mg BID ZACK Administration Famotidine 20 mg 12/01/19 10:00 12/03/19 10:32 Pepcid IV 20 mg DAILY ZACK Administration Hydralazine HCl 5 mg 12/01/19 03:08 12/02/19 12:36 Apresoline IV 5 mg Q6H PRN Administration Blood Pressure Hydrochlorothiazide 12.5 mg 12/03/19 10:00 12/03/19 10:31 Hctz PO 12.5 mg QDAY ZACK Administration Hydromorphone HCl 1 mg 11/30/19 21:38 12/03/19 08:08 Dilaudid IV 1 mg Q3H PRN Administration Pain , Severe (7-10) Dextrose/Sodium Chloride 1,000 mls @ 100 mls/hr 11/30/19 22:00 12/02/19 21:23 D5ns IV 100 mls/hr DIRECT ZACK Administration Cefepime HCl 2 gm in 100 mls @ 200 mls/hr 12/01/19 22:00 12/03/19 11:29 Cefepime/Ns 2 Gm/100 Ml IV 200 mls/hr Q12HR ZACK Administration Protocol Pamidronate Disodium 30 mg/ 500 mls @ 125 mls/hr 12/02/19 08:00 12/03/19 08:22 Sodium Chloride IV 12/03/19 11:59 125 mls/hr Q24H ZACK Administration Ketorolac Tromethamine 15 mg 12/01/19 00:00 12/03/19 11:24 Toradol IV 12/06/19 00:00 15 mg Q6HR ZACK Administration Lisinopril 40 mg 12/02/19 15:00 12/03/19 10:31 Zestril PO 40 mg QDAY ZACK Administration Metoclopramide HCl 10 mg 11/30/19 21:38 Reglan IV Q6H PRN Nausea And Vomiting Morphine Sulfate 15 mg 12/03/19 12:00 Ms Contin Er PO Q12HR ZACK Ondansetron HCl 4 mg 11/30/19 21:38 Zofran IV Q3H PRN Nausea And Vomiting Oxycodone/Acetaminophen 1 tab 11/30/19 21:38 Percocet 5/325 PO Q6H PRN Pain, Moderate (4-6) Sodium Chloride 10 ml 11/30/19 22:00 12/03/19 10:32 Sodium Chloride Flush Syringe 10 Ml IV 10 ml BID ZACK Administration Sodium Chloride 10 ml 11/30/19 21:38 Sodium Chloride Flush Syringe 10 Ml IV PRN PRN LINE FLUSH Nutrition/Malnutrition Assess - Dietary Evaluation Nutrition/Malnutrition Findings: Nutrition Notes Start: 12/01/19 11:35 Freq: Status: Active Protocol: Document 12/01/19 11:35 CT (Rec: 12/01/19 11:44 CT [email or web address]) Co-Sign 12/01/19 11:35 LM Nutrition Notes Need for Assessment generated from: imaging services director Initial or Follow up Assessment Current Diagnosis Hypertension Other Pertinent Diagnosis fungating breast mass, bilat DVT, breast CA, hypercalcemia Current Diet Regular Labs/Tests BUN 20 Glu 134 Ca 12 Pertinent Medications D5NS 100 ml/hr Height 5 ft 4 in Weight 58.9 kg Usual Body Weight 64.436 kg [place] Body Weight (kg) 54.54 BMI 22.3 Intake Prior to Admission Excellent Weight change and time frame 7% wt loss in 2 weeks (fluid removal) Weight Status Appropriate Subjective/Other Information RN skin risk screen. Pt stated UBW was 142 lbs at her last weigh in, and that yesterday after the procedure to drain fluid from her CA wound, she weighed 131 lbs. This calculates to be a 7% wt loss in 2 weeks. 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 Pt consumed 50% of breakfast and 75% of dinner the previous night. Discussed with pt the importance of consuming protein in regards to wound healing. Pt stated that she believes she is lactose intolerant but only c/o mild gas and soft stools but she still eats dairy products since it does not cause her any discomfort. Pt stated she would like to try Ensure daily, and Alvin BID to help with wound healing. Noted orbital, temporal, and interosseous wasting. Burn Absent Trauma Absent GI Symptoms None Current % PO Fair (50-74%) Minimum of two criteria Yes Body Fat Depletion Moderate depletion (severe) Muscle Mass Moderate Depletion (severe) #2 Nutrition Diagnosis Increased nutrient needs ( specify in comment below) Comments: protein Etiology wound healing As Evidenced by Signs and Symptoms open wound on breast #1 Nutrition Diagnosis Malnutrition Etiology Breast CA, advanced age As Evidenced by Signs and Symptoms muscle and fat depletion Is patient on ventilator? No Is Patient Ambulatory and/or Out of Bed Yes REE-([facility]-ambulatory/OOB) [ 1409.200 NUTR.MSJOOB] Calculation Used for Recommendations [facility] Additional Notes Protein needs: 71-88 g/day (1. 2-1.5 g/kg/day) Fluid needs: 1 ml/kcal Nutrition Intervention Change Diet Order: Continue Regular Diet Add Supplement/Snack (indicate name/kcal Add Ensure daily /protein ) Add Alvin BID Provides kCal: 540 Provides Protein (gm) 25 Goal #1 Meet >75% of energy and protein needs Goal #2 wound healing Anticipated Discharge Needs: Regular diet with ONS PRN Follow-Up By: 12/06/19 Additional Comments Follow up for PO/ONS intakes
[2019-12-03] MEDS ORDERED: amLODIPine 10 MG TAB PO SCH (12:00)
[2019-12-03] MEDS: MORPHINE 15 MG ER TAB PO SCH ×2 (13:00→22:30)
[2019-12-03] MEDS: D5W/0.9% NACL 1,000 ML IV SCH (17:48)
[2019-12-03] MEDS: hydrALAZINE 20 MG/1 ML INJ IV PRN (17:55)
[2019-12-04] MEDS: KETOROLAC 30 MG/1 ML INJ IV SCH ×3 (00:30→12:47)
--- NOTE | 2019-12-04 09:46 | Hem/Onc Progress Note ---
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 The result as follows: Pancytokeratin (A5) positive P63 (A2, A5) positive The immunohistochemical stains confirm the above diagnosis. Breast Cancer Tumor Profiling Antibody(Clone) % Positive Intensity Interpretation ER (6F11) 0% N/A Negative (internal control present) VA ([id number]) 0% N/A Negative (internal control present) Ki-67 (MIB-1) 90-100% N/A Unfavorable HER2 (4B5) N/A 0 Negative as per notes of dr mendez She had met with Dr. King and recommended neoadjuvant chemotherapy # Developed Bilateral leg DVT sec to Long plane travel. Was started on Xarelto which resulted in severe bleeding from L breast fungating mass. IVC filter and port were placed and Xarelto was stopped pt says had CT done at [facility]- probably dr mendez may know - if unclear - pt will benefit from CT CAP # anemia - may be tumor related -b12 - folate normal - high ferritin - low iron CA 27.29 # h/o High calcium - likely tumor related -s/p aredia trial pt will see Dr Birch for chemo - Patient Problems (1) Breast cancer Status: Acute Qualifiers: Estrogen receptor status: negative Patient sex: female Laterality: left Subjective Date of service: 12/04/19 Principal diagnosis: breast ca Interval history: feeling better Objective - Exam Narrative Exam: Vitals were reviewed. No pallor No icterus No neck lymph nodes Heart S1-S2 present Lungs clear to auscultation anteriorly rt chest port left breast mass Abdomen soft Leg no edema Female genitalia not examined - Constitutional Vitals: Last Vital Signs Temp 98.5 F 12/04/19 08:07 Pulse 83 12/04/19 08:07 Resp 22 12/04/19 02:41 BP 156/74 12/04/19 08:07 Pulse Ox 99 12/04/19 08:07 Medications & Allergies - Medications Allergies/Adverse Reactions: Allergies No Known Allergies Allergy (Verified 11/23/19 13:46) Home Medications: Home Medications Medication Instructions Recorded Confirmed Last Taken Type hydroCHLOROthiazide [HCTZ] 12.5 mg PO QDAY 11/23/19 11/30/19 11/30/19 History Acetaminophen [Acetaminophen TAB] 325 mg PO Q4H PRN #15 tablet 12/04/19 Unknown Rx Morphine ER [Ms Contin ER] 15 mg PO Q12HR #60 tablet 12/04/19 Unknown Rx amLODIPine 10 mg PO QDAY #30 tablet 12/04/19 Unknown Rx carvediloL [Coreg] 12.5 mg PO BID #60 tab 12/04/19 Unknown Rx lisinopriL [Zestril TAB] 40 mg PO QDAY #30 tab 12/04/19 Unknown Rx Active Medications: Generic Name Dose Route Start Last Admin Trade Name Freq PRN Reason Stop Dose Admin Acetaminophen 650 mg 11/30/19 21:38 Tylenol PO Q4H PRN Pain MILD(1-3)/Fever >100.5/RAMIREZ Acetaminophen/Hydrocodone Bitart 1 each 12/02/19 14:55 [place] 5/325 PO Q6HR PRN PAIN Amlodipine Besylate 10 mg 12/04/19 10:00 Amlodipine PO QDAY ZACK Carvedilol 12.5 mg 12/02/19 15:00 12/03/19 22:31 Coreg PO 12.5 mg BID ZACK Administration Famotidine 20 mg 12/01/19 10:00 12/03/19 10:32 Pepcid IV 20 mg DAILY ZACK Administration Hydralazine HCl 5 mg 12/01/19 03:08 12/03/19 17:55 Apresoline IV 5 mg Q6H PRN Administration Blood Pressure Hydrochlorothiazide 12.5 mg 12/03/19 10:00 12/03/19 10:31 Hctz PO 12.5 mg QDAY ZACK Administration Hydromorphone HCl 1 mg 11/30/19 21:38 12/03/19 17:54 Dilaudid IV 1 mg Q3H PRN Administration Pain , Severe (7-10) Cefepime HCl 2 gm in 100 mls @ 200 mls/hr 12/01/19 22:00 12/03/19 22:32 Cefepime/Ns 2 Gm/100 Ml IV 200 mls/hr Q12HR ZACK Administration Protocol Ketorolac Tromethamine 15 mg 12/01/19 00:00 12/04/19 07:28 Toradol IV 12/06/19 00:00 Not Given Q6HR ZACK Lisinopril 40 mg 12/02/19 15:00 12/03/19 10:31 Zestril PO 40 mg QDAY ZACK Administration Metoclopramide HCl 10 mg 11/30/19 21:38 Reglan IV Q6H PRN Nausea And Vomiting Morphine Sulfate 15 mg 12/03/19 12:00 12/03/19 22:30 Ms Contin Er PO 15 mg Q12HR ZACK Administration Ondansetron HCl 4 mg 11/30/19 21:38 Zofran IV Q3H PRN Nausea And Vomiting Oxycodone/Acetaminophen 1 tab 11/30/19 21:38 12/04/19 02:41 Percocet 5/325 PO 1 tab Q6H PRN Administration Pain, Moderate (4-6) Sodium Chloride 10 ml 11/30/19 22:00 12/03/19 22:32 Sodium Chloride Flush Syringe 10 Ml IV 10 ml BID ZACK Administration Sodium Chloride 10 ml 11/30/19 21:38 Sodium Chloride Flush Syringe 10 Ml IV PRN PRN LINE FLUSH
[2019-12-04 09:56] LABS: Hematocrit 26.5 % (30.3-42.9); Hemoglobin 8.2 gm/dl (10.1-14.3); Mean Corpuscular HGB Conc 31 % (30-34); Mean Corpuscular Volume 98 fl (79-97); Platelet Count 301 K/mm3 (140-440); Red Cell Distribution Width 17.2 % (13.2-15.2)
[2019-12-04] MEDS ORDERED: amLODIPine 10 MG TAB PO SCH (10:00)
--- NOTE | 2019-12-04 10:40 | Discharge Summary ---
Providers - Providers Date of Admission: 12/01/19 11:16 Date of discharge: 12/04/19 Attending physician: PARIS KILGORE 11/30/19 21:38 Consult to Physician [CONS] Routine Comment: Consulting Provider: ALYSA ISABEL Physician Instructions: Reason For Exam: Fungating left breast mass 11/30/19 21:45 Consult to Physician [CONS] Routine Comment: Consulting Provider: KERI RANGEL Physician Instructions: Reason For Exam: Left breast mass and fungating mass 12/01/19 07:42 Consult to Wound/ET Nurse [CONS] Stat Reason For Exam: wound evaluation to left breast fungating mass 12/01/19 07:57 Consult to Physician [CONS] Routine Comment: Consulting Provider: LIAM TEJEDA Physician Instructions: Reason For Exam: L Breast wound--Abx choice 12/01/19 11:56 Consult to Physician [CONS] Routine Comment: Consulting Provider: LIAM TEJEDA Physician Instructions: I notified Reason For Exam: CoronaVirus exposure 12/02/19 10:22 Physical Therapy Evaluation and Treat [CONS] Routine Comment: Reason For Exam: weakness Primary care physician: SOCRATES CUTLER Hospitalization Condition: Poor Hospital course: Patient is a 74 yo AA woman with a history of iron deficiency anemia s/p Iron transfusion and hypertension who [facility] direct [facility] from Dr. Isabel's office where she drained 50 cc of pus and cleaned wound. She discovered the left breast mass around January 2018 but never went to a doctor for mammogram or exam; her last mammogram was with [facility] [facility] in 2007. Then around Jul or August 2019 she noticed ulceration of the left breast mass but did not seek medical attention. She even went on a 21 day Cruise. She flew from [place] to [facility] then flew to [facility] [place] to board the Cruise. During the trip, on the 3 days, she developed a viral illness and was sick during the majority of the cruise with breast pains. The cruise docked in [facility], where she flew back to [place] on October 23. She never was quarantined for CORONAVirus. Patient was seen by Dr. 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 KY 0%, Ki-67 90-100% and Her-2 negative. At that visit she had bilateral leg swelling and went for BLE Venous Leg doppler which reported bilateral lower extremities DVT on November 02 and she was started on Xarelto which had to be stopped due to bleeding from left breast mass and IVC filter was placed (records most likely at [facility]). She was then seen by Dr. Álvaro Rhoades, Heme/Onc for the first time on October 31. The plan was to start Carbo/Taxol chemotherapy followed by debridement left breast mastectomy. She returned to Dr. Rhoades for chemotherapy on 11/28/2019 but Blood pressure was too high. Then she was sent back to Breast Surgeon, Dr. Isabel on 11/30/2019 and from there she was sent here as a direct admission for IV abx to control the infection prior to chemo then debunking mastectomy. (I spoke with Dr. Rhoades's CATTERY OPERATOR Mason Reid) Malignant Hypertension: adjust antihypertensives, iv labetalol prn, control breast pain, reconciled home meds of coreg/lisinopril/hctz Fungating L Breast mass with infection/wet putrid smelling gangrenous: consult ID, treat IV abx, needs wound Care consult and management Sepsis due to above, poa: get blood culture, treat with ABX, consulted ID Stage 3/4 Left Breast cancer: chemo planned so no hospice considered CORONAvirus risk, out of time frame for risk of transmission, Right arm swollen, ordered doppler but unavail but testing will not add anything, she has DVT already unable to use a/c due to bleeding. Acute BLE leg DVT unable to tolerate therapeutic A/C due to bleeding: s/p DVT, had CTA chest recently per Dr. Isabel, maybe at [facility] Moderate Malnutrition: consult Rehab Specialist Anemia of chronic disorder, iron deficiency and blood loss from fungating mass: monitor cbc closely transfuse prbx if hgb under 7.0 DVT ppx: scd Disposition: continue inpatient care, iv abx, await wound culture from Dr. Isabel's office which is growing GND, ID and Dr. Isabel will follow. Main issue preventing chemotherapy is control of bp, Coreg/Lisinopril/HCTZ 12/03/19: Still with severe left breast pains, using iv dilaudid with some relief. D/W Dr. Isabel, patient needs Chemotherapy as soon as possible. Patient is scheduled for Chemotherapy on Thursday with Dr. Álvaro Rhoades as long as BP is controlled. Her BP is improved but still high despite the 3 antihypertensives she is on. I will add Norvasc. Pain is driving bp to be higher. Consider long acting Opioids but I do not want her lethargic or drowsy for chemotherapy on Thursday, so I will use prn Opioid. Anticipate discharge tomorrow (Thursday) 12/04/19: The pain is better controlled with long acting Morphine. Bp is much better, will discharge [place] mixing plant operator aware used, she has multiple refilled scripts for short acting opioids in November, from Breast surgeon Dr. Isabel, General surgeon Dr. Carolina and Oncologist Dr. Gill; however, she does not have long acting Morphine ER that was started here and tolerated with the short acting opioids. So, i will give her script for the long acting morphine ER for severe left breast cancer pains Disposition: DC TO HOME OR SELFCARE Time spent for discharge: 34 minutes Core Measure Documentation - Palliative Care Palliative Care/ Comfort Measures: Not Applicable - Core Measures Any of the following diagnoses?: DVT/PE - VTE Discharge Requirements Deep Vein Thrombosis/Pulmonary Embolism Present on Admission: Yes Has pt received <5 days of overlap therapy or INR<2.0: No (bleeding) Anticoagulant overlap therapy prescribed at discharge: No Contraindication No Overlap Therapy order at DC: Medical Contraindication (bleeding) Exam - Physical Exam Narrative exam: Gen: thin frail nad a/o x 3 HEENT: NCAT, EOMI, PERRL, OP Clear Neck: supple, no adenopathy, no thyromegaly, no JVD CVS/Heart: RRR, normal S1S2, pulses present bilaterally Chest/Lungs: CTA B, Symmetrical chest expansion, good air entry bilaterally GI/Abdomen: soft, NTND, good bowel sounds, no guarding or rebound /Bladder: no suprapubic tenderness, no CVA or paraspinal tenderness Breast: worsen fungating L breast mass I have seen, putrid smelling, huge volleyball size mass with hole to the muscular chest wall in the middle==>left breast fungating breast mass around the 1:00 position with cauliflower-like appearance with odor and necrotic tissue, skin ulceration, nipple intact tumor distal to nipple, mass over 7 cm and left breast nearly encompassed with tumor of at least 14 cm and palpable fixed left axillary lymphadenopathy. Extermity/Skin: no c/c/e, no obvious rash MSK: FROM x 4 Neuro: CN 2-12 grossly intact, no new focal deficits Psych: calm - Constitutional Vitals: Temp Pulse Resp BP Pulse Ox 98.5 F 83 22 156/74 99 12/04/19 08:07 12/04/19 08:07 12/04/19 02:41 12/04/19 08:07 12/04/19 08:07 Plan Activity: other (no strenous activity) Diet: low salt Follow up with: ÁLVARO SALGUERO MD [Referring] - 12/05/19 9:00 am ALYSA ISABEL MD [Staff Physician] - 7 Days SOCRATES CUTLER MD [Primary Care Provider] - 7 Days Prescriptions: amLODIPine 10 mg PO QDAY #30 tablet carvediloL [Coreg] 12.5 mg PO BID #60 tab Morphine ER [Ms Contin ER] 15 mg PO Q12HR #60 tablet lisinopriL [Zestril TAB] 40 mg PO QDAY #30 tab
[2019-12-04] MEDS: hydroCHLOROthiazide 12.5 MG CAP PO SCH (11:06)
[2019-12-04] MEDS: LISINOPRIL 40 MG TAB PO SCH (11:07)
[2019-12-04] MEDS: carvediloL 12.5 MG TAB PO SCH (11:07)
[2019-12-04] MEDS: MORPHINE 15 MG ER TAB PO SCH (11:08)
[2019-12-04] MEDS: FAMOTIDINE 20 MG/2 ML INJ IV SCH (11:11)
[2019-12-04] MEDS: CEFEPIME/NS 2 GM/100 ML 2 GM/100 ML BAG IV SCH (11:12)
[2019-12-04 13:32] VITALS: BP 162/75
== END 2019-12-04 15:10 | disposition home or self-care (01) | DRG 872 ==
LOC: UNDOADMIN 17:57 → 2B-ACE 17:57 → PREINTOOBSV 18:03 → 2B-ACE 18:46 → OBSVTOIN 12-01 11:16
PROVIDERS: ADMIT Internal Medicine; ATTEND Internal Medicine
DX: A41.9 Sepsis, unspecified organism (principal); I82.403 Acute embolism and thrombosis of unspecified deep veins of lower extremity, bilateral; E44.0 Moderate protein-calorie malnutrition; I10 Essential (primary) hypertension; E83.52 Hypercalcemia; C50.912 Malignant neoplasm of unspecified site of left female breast; D50.9 Iron deficiency anemia, unspecified; N63.20 Unspecified lump in the left breast, unspecified quadrant; Z82.49 Family history of ischemic heart disease and other diseases of the circulatory system; Z68.22 Body mass index [BMI] 22.0-22.9, adult; Z71.3 Dietary counseling and surveillance
CPT/HCPCS: 36415; 71046; 71260; 80053; 82607; 82728; 82747; 83550; 85025; 85027; 86300; 86301; 87040; G0378; G0379; J0360; J0692; J1170; J1885; J2270; J2430; J3370; J7040; J7042; J7050